=== PATIENT | female | born 1950 | race Caucasian/White ===

== ENCOUNTER 2017-12-19 01:24 | Emergency (ER) | payer MEDICARE ==
[~2017-12-19] VITALS: Ht 167.6 cm; Wt 82.0 kg
[~2017-12-19 01:24] MED LIST: ALBU8.5H8 IH; BUDE0.256 NEB; CLON-528 PO; ESCI20TA PO; FORM20VI IH; LISI1TAB11 PO; MONT10TA21 PO; PROM25TA14 PO; ZOLP10TA5 PO
[2017-12-19 01:31] VITALS: BP 115/57
== END 2017-12-19 02:44 | disposition home or self-care (01) ==
LOC: ER 01:25
DX: M53.3 Sacrococcygeal disorders, not elsewhere classified (principal); I10 Essential (primary) hypertension; J44.9 Chronic obstructive pulmonary disease, unspecified; Z88.5 Allergy status to narcotic agent; Z88.0 Allergy status to penicillin; Z90.710 Acquired absence of both cervix and uterus; Z79.899 Other long term (current) drug therapy; W19.XXXA Unspecified fall, initial encounter; Y93.89 Activity, other specified; Y92.89 Other specified places as the place of occurrence of the external cause; Y99.8 Other external cause status
CPT/HCPCS: 99284

== ENCOUNTER 2018-01-15 13:53 | Inpatient (IN) | payer MEDICARE ==
[~2018-01-15] VITALS: Ht 172.7 cm; Wt 65.0 kg
[2018-01-15] MEDS ORDERED: normal saline 1000ML IV soln IV ONE (14:10)
[2018-01-15 14:30] LABS: BASOPHILS % (AUTO) 0.6 % (0-1); EOSINOPHILS # (AUTO) 0.1 X10'3 (0-0.9); EOSINOPHILS % (AUTO) 1.8 % (0-6); HEMATOCRIT 29.3 % (35.0-45.0); HEMOGLOBIN 9.7 g/dl (12.0-16.0); LYMPHOCYTES # (AUTO) 0.5 X10'3 (1.1-4.8); LYMPHOCYTES % (AUTO) 5.6 % (21-51); MEAN CORPUSCULAR HEMOGLOBIN 28.8 PG (27.0-31.0); MEAN CORPUSCULAR VOLUME 87.2 FL (78-98); MONOCYTES # (AUTO) 0.5 X10'3 (0-0.9); MONOCYTES % (AUTO) 5.6 % (2-12); NEUTROPHILS % (AUTO) 86.4 % (42-75); PLATELET COUNT 176 X10'3 (140-440); RED BLOOD COUNT 3.36 X10'6 (4.20-5.60); RED CELL DISTRIBUTION WIDTH 15.2 % (11.5-14.5); WHITE BLOOD COUNT 8.1 X10'3 (4.5-11.0)
[2018-01-15 14:43] LABS: INR 1.4 INR; PARTIAL THROMBOPLASTIN TIME 38 SECONDS (22-32); PROTHROMBIN TIME 14.4 SECONDS (9.0-12.0)
[2018-01-15 14:49] LABS: ALANINE AMINOTRANSFERASE 20 U/L (12-78); ALBUMIN/GLOBULIN RATIO 0.5 (1.1-1.5); ALKALINE PHOSPHATASE 157 IU/L (46-116); ANION GAP 14 (8-16); ASPARTATE AMINO TRANSFERASE 33 U/L (10-37); BILIRUBIN,TOTAL 0.3 MG/DL (0.1-1.0); BLOOD UREA NITROGEN 68 MG/DL (7-18); BUN/CREATININE RATIO 12.1 (6.6-38.0); CALCIUM 10.2 MG/DL (8.5-10.1); CHLORIDE 104 MMOL/L (99-107); CREATININE 5.62 MG/DL (0.40-0.90); GLUCOSE 102 MG/DL (70-104); MAGNESIUM 2.5 MG/DL (1.5-2.4); POTASSIUM 3.1 MMOL/L (3.5-5.1); SODIUM 140 MMOL/L (135-145); TOTAL CARBON DIOXIDE 21.7 MMOL/L (24-32); TOTAL PROTEIN 5.7 G/DL (6.4-8.2); eGFR 7 ML/MIN
[2018-01-15 14:54] LABS: CLARITY,URINE Cloudy (Clear); COLOR,URINE Yellow (Yellow); GLUCOSE, URINE Negative (Neg); KETONES,URINE Negative (Neg); LEUKOCYTE ESTERASE ,URINE Moderate (Neg); NITRITES, URINE Negative (Neg); OCCULT BLOOD,URINE Moderate (Neg); PH,URINE 5.5 (4.8-8.0); PROTEIN,URINE 300 mg/dl (Neg); UROBILINOGEN,URINE 0.2 E.U/dL (0.2-1.0)
[2018-01-15 14:55] LABS: UA COLLECTION TYPE FOLEY CATH
[2018-01-15 15:03] LABS: WBC,URINE 50-100 /HPF (0-4)
[2018-01-15 15:04] LABS: BACTERIA,URINE 1+ /HPF (Neg); CELLULAR CAST 0-4 /LPF (NEGATIVE); SQUAMOUS EPITHELIAL CELL,UR FEW /LPF (FEW); TRANSITIONAL EPI CELLS,URINE FEW /HPF; WBC CLUMPS,URINE FEW /HPF (NEGATIVE); YEAST MANY /HPF (NEGATIVE)
[2018-01-15] MEDS ORDERED: magnesium hydroxide 30ml (MOM) UD suspension PO PRN (15:20)
[2018-01-15] MEDS ORDERED: magnesium Cl slow-release 64mg tablet PO PRN (15:20)
[2018-01-15] MEDS ORDERED: magnesium/D5W IVPB 50 ML IV PRN (15:20)
[2018-01-15] MEDS ORDERED: mag hydrox/Alum hydrox/simeth 30ml oral suspension PO PRN (15:20)
[2018-01-15] MEDS ORDERED: acetaminophen 325mg tablet PO PRN ×2 (15:20)
[2018-01-15] MEDS ORDERED: magnesium 4gm in 100ml NS 100 ML IV PRN (15:20)
[2018-01-15] MEDS ORDERED: LACT1CAP57 PO (15:27)
[2018-01-15] MEDS ORDERED: CIPR-259 PO (15:28)
[2018-01-15] MEDS ORDERED: FOLI1TAB16 PO (15:30)
[2018-01-15] MEDS ORDERED: CEFE2VIA IV (15:31)
[2018-01-15] MEDS ORDERED: HYDR-565 PO (15:33)
[2018-01-15] MEDS ORDERED: AMLO5TAB4 PO (15:33)
[2018-01-15] MEDS ORDERED: OMEP20CA10 PO (15:34)
[2018-01-15] MEDS ORDERED: SENN-161 PO (15:35)
[2018-01-15] MEDS ORDERED: ASCO500C15 PO (15:36)
[2018-01-15] MEDS: sodium bicarbonate (8.4%) inj. 100 MEQ in sodium chloride 0.45% 1,000 ML IV SCH (16:24)
[2018-01-15] MEDS ORDERED: zolpidem 5mg tablet PO PRN (17:35)
[2018-01-15] MEDS: CEFEPIME 1 GM in NORMAL SALINE 100ml IV.SOLN IV SCH (17:45)
[2018-01-15 19:00] VITALS: BP 111/51
[2018-01-15] MEDS: heparin, porcine 5000 units/ml vial SQ SCH (21:05)
[2018-01-15] MEDS: lactobacillus rhamnosus 10,000 MMU CELLS/CAPSULE PO SCH (21:08)
[2018-01-15] MEDS: citalopram 20mg tablet PO SCH (21:08)
[2018-01-15] MEDS: ascorbic acid 500mg tablet PO SCH (21:08)
[2018-01-15] MEDS: sennosides 8.6mg tablet PO SCH (21:08)
[2018-01-15] MEDS: ciprofloxacin 250mg tablet PO SCH (21:08)
[2018-01-15 23:00] VITALS: BP 118/50
[2018-01-16 03:00] VITALS: BP 123/54
[2018-01-16] MEDS: sodium bicarbonate (8.4%) inj. 100 MEQ in sodium chloride 0.45% 1,000 ML IV SCH (05:33)
[2018-01-16 06:00] VITALS: BP 128/47
[2018-01-16] MEDS: heparin, porcine 5000 units/ml vial SQ SCH ×2 (08:11→20:50)
[2018-01-16] MEDS: pantoprazole 40mg Tablet.DR PO SCH (08:11)
[2018-01-16] MEDS: lactobacillus rhamnosus 10,000 MMU CELLS/CAPSULE PO SCH ×3 (08:12→20:31)
[2018-01-16] MEDS: folic acid 1mg tablet PO SCH (08:12)
[2018-01-16] MEDS: amLODIPine 5mg tablet PO SCH (08:12)
[2018-01-16] MEDS: HYDROcodone/acetaminophen 5mg/325mg tablet PO PRN (08:12)
[2018-01-16] MEDS: ascorbic acid 500mg tablet PO SCH ×2 (08:12→20:31)
[2018-01-16] MEDS ORDERED: magnesium hydroxide 30ml (MOM) UD suspension PO ONE (08:25)
[2018-01-16 10:06] LABS: BASOPHILS % (AUTO) 0.6 % (0-1); EOSINOPHILS # (AUTO) 0.1 X10'3 (0-0.9); EOSINOPHILS % (AUTO) 1.5 % (0-6); HEMATOCRIT 25.8 % (35.0-45.0); HEMOGLOBIN 8.6 g/dl (12.0-16.0); LYMPHOCYTES # (AUTO) 0.5 X10'3 (1.1-4.8); LYMPHOCYTES % (AUTO) 6.3 % (21-51); MEAN CORPUSCULAR HGB CONC 33.4 % (33.0-36.5); MEAN CORPUSCULAR VOLUME 87.1 FL (78-98); MEAN PLATELET VOLUME 9.8 FL (7.4-10.4); MONOCYTES # (AUTO) 0.4 X10'3 (0-0.9); MONOCYTES % (AUTO) 5.6 % (2-12); NEUTROPHILS # (AUTO) 6.3 X10'3 (1.8-7.7); PLATELET COUNT 139 X10'3 (140-440); RED BLOOD COUNT 2.97 X10'6 (4.20-5.60); RED CELL DISTRIBUTION WIDTH 15.1 % (11.5-14.5); WHITE BLOOD COUNT 7.3 X10'3 (4.5-11.0)
[2018-01-16 10:16] LABS: TOTAL PROTEIN,URINE RANDOM 121.4 MG/DL
[2018-01-16 10:20] LABS: ALANINE AMINOTRANSFERASE 16 U/L (12-78); ALBUMIN 1.6 G/DL (3.4-5.0); ALBUMIN/GLOBULIN RATIO 0.5 (1.1-1.5); ALKALINE PHOSPHATASE 123 IU/L (46-116); ANION GAP 13 (8-16); ASPARTATE AMINO TRANSFERASE 23 U/L (10-37); BILIRUBIN,TOTAL 0.3 MG/DL (0.1-1.0); BLOOD UREA NITROGEN 57 MG/DL (7-18); CALCIUM 8.6 MG/DL (8.5-10.1); CHLORIDE 105 MMOL/L (99-107); CREATININE 4.74 MG/DL (0.40-0.90); GLUCOSE 82 MG/DL (70-104); PHOSPHORUS 2.4 MG/DL (2.3-4.5); SODIUM 147 MMOL/L (135-145); TOTAL PROTEIN 4.7 G/DL (6.4-8.2); eGFR 9 ML/MIN
[2018-01-16 10:27] LABS: POTASSIUM 2.4 MMOL/L (3.5-5.1)
[2018-01-16 10:37] LABS: UA EOSINOPHILS NO EOS /HPF
[2018-01-16] MEDS ORDERED: potassium Cl 20 mEq SR tablet PO PRN (10:40)
[2018-01-16] MEDS ORDERED: potassium Cl 40MEQ/NS 500ml 500 ML IV PRN ×2 (10:40)
[2018-01-16 11:00] VITALS: BP 127/65
[2018-01-16] MEDS: potassium Cl 20 mEq SR tablet PO PRN (12:48)
[2018-01-16] MEDS: ciprofloxacin 250mg tablet PO SCH (13:20)
[2018-01-16] MEDS: Potassium Cl inj 20 MEQ in dextrose 5%-water 990 ML IV SCH (14:42)
[2018-01-16 15:00] VITALS: BP 138/58
[2018-01-16] MEDS: CEFEPIME 1 GM in NORMAL SALINE 100ml IV.SOLN IV SCH (17:19)
[2018-01-16 19:00] VITALS: BP 138/45
[2018-01-16] MEDS: citalopram 20mg tablet PO SCH (20:31)
[2018-01-16] MEDS: docusate sod 100mg capsule PO SCH (20:31)
[2018-01-16] MEDS: sennosides 8.6mg tablet PO SCH (20:31)
[2018-01-16] MEDS: ondansetron/PF 4mg/2ml inj IV PRN (20:38)
[2018-01-16] MEDS ORDERED: potassium Cl 40MEQ/NS 500ml 1,000 ML IV ONE (22:05)
[2018-01-16 23:00] VITALS: BP 134/55
[2018-01-17 03:00] VITALS: BP 124/58
[2018-01-17 03:45] LABS: BASOPHILS % (AUTO) 0.5 % (0-1); EOSINOPHILS # (AUTO) 0.1 X10'3 (0-0.9); EOSINOPHILS % (AUTO) 1.3 % (0-6); HEMATOCRIT 27.7 % (35.0-45.0); HEMOGLOBIN 9.2 g/dl (12.0-16.0); LYMPHOCYTES # (AUTO) 0.5 X10'3 (1.1-4.8); LYMPHOCYTES % (AUTO) 6.9 % (21-51); MEAN CORPUSCULAR HEMOGLOBIN 28.7 PG (27.0-31.0); MEAN CORPUSCULAR HGB CONC 33.3 % (33.0-36.5); MEAN CORPUSCULAR VOLUME 86.1 FL (78-98); MEAN PLATELET VOLUME 9.5 FL (7.4-10.4); MONOCYTES # (AUTO) 0.5 X10'3 (0-0.9); MONOCYTES % (AUTO) 7.9 % (2-12); NEUTROPHILS # (AUTO) 5.5 X10'3 (1.8-7.7); NEUTROPHILS % (AUTO) 83.4 % (42-75); PLATELET COUNT 150 X10'3 (140-440); RED BLOOD COUNT 3.22 X10'6 (4.20-5.60); RED CELL DISTRIBUTION WIDTH 15.2 % (11.5-14.5); WHITE BLOOD COUNT 6.6 X10'3 (4.5-11.0)
[2018-01-17 04:11] LABS: ALANINE AMINOTRANSFERASE 20 U/L (12-78); ALBUMIN 1.8 G/DL (3.4-5.0); ALBUMIN/GLOBULIN RATIO 0.5 (1.1-1.5); ALKALINE PHOSPHATASE 136 IU/L (46-116); ANION GAP 13 (8-16); ASPARTATE AMINO TRANSFERASE 26 U/L (10-37); BILIRUBIN,TOTAL 0.2 MG/DL (0.1-1.0); BLOOD UREA NITROGEN 59 MG/DL (7-18); BUN/CREATININE RATIO 12.6 (6.6-38.0); CALCIUM 9.6 MG/DL (8.5-10.1); CHLORIDE 108 MMOL/L (99-107); CREATININE 4.69 MG/DL (0.40-0.90); GLUCOSE 110 MG/DL (70-104); MAGNESIUM 2.1 MG/DL (1.5-2.4); PHOSPHORUS 2.1 MG/DL (2.3-4.5); SODIUM 145 MMOL/L (135-145); TOTAL CARBON DIOXIDE 24.2 MMOL/L (24-32); TOTAL PROTEIN 5.2 G/DL (6.4-8.2); eGFR 9 ML/MIN
[2018-01-17 06:00] VITALS: BP 135/70
[2018-01-17] MEDS: Potassium Cl inj 20 MEQ in dextrose 5%-water 990 ML IV SCH ×3 (06:35→16:14)
[2018-01-17] MEDS: ciprofloxacin 250mg tablet PO SCH (07:00)
[2018-01-17] MEDS: ascorbic acid 500mg tablet PO SCH ×2 (08:00→20:00)
[2018-01-17] MEDS: folic acid 1mg tablet PO SCH (08:00)
[2018-01-17] MEDS: pantoprazole 40mg Tablet.DR PO SCH (08:00)
[2018-01-17] MEDS: lactobacillus rhamnosus 10,000 MMU CELLS/CAPSULE PO SCH ×3 (08:00→21:00)
[2018-01-17] MEDS: docusate sod 100mg capsule PO SCH ×2 (08:00→20:00)
[2018-01-17] MEDS: ondansetron/PF 4mg/2ml inj IV PRN (08:49)
[2018-01-17] MEDS: heparin, porcine 5000 units/ml vial SQ SCH ×2 (08:49→20:00)
[2018-01-17] MEDS: amLODIPine 5mg tablet PO SCH (08:49)
[2018-01-17] MEDS ORDERED: bisacodyl 10mg suppository rectal RC STA (10:02)
[2018-01-17 11:00] VITALS: BP 151/75
[2018-01-17] MEDS: HYDROcodone/acetaminophen 5mg/325mg tablet PO PRN (12:16)
[2018-01-17 15:00] VITALS: BP 140/57
[2018-01-17] MEDS: folic acid/vitamin B complex w/vitamin C 0.8mg tablet PO SCH (16:14)
[2018-01-17] MEDS: clotrimazole 10mg troche MM SCH ×2 (17:24→21:53)
[2018-01-17 19:00] VITALS: BP 134/67
[2018-01-17] MEDS ORDERED: LORazepam 2 mg/ml vial IV ONE (19:55)
[2018-01-17] MEDS: sennosides 8.6mg tablet PO SCH (21:00)
[2018-01-17] MEDS: citalopram 20mg tablet PO SCH (21:00)
[2018-01-17 23:00] VITALS: BP 141/62
[2018-01-18] MEDS: ciprofloxacin 250mg tablet PO SCH ×2 (01:05→19:34)
[2018-01-18] MEDS ORDERED: potassium CL 20mEq in D5-1/2NS 1,000 ML IV SCH (02:00)
[2018-01-18] MEDS ORDERED: potassium cl 20mEq in 1/2 NS 1,000 ML IV ONE (02:08)
[2018-01-18] MEDS: potassium cl 20mEq in 1/2 NS 1,000 ML IV SCH ×3 (02:17→21:00)
[2018-01-18] MEDS: Potassium Cl inj 20 MEQ in dextrose 5%-water 990 ML IV SCH (02:35)
[2018-01-18 03:00] VITALS: BP 122/62
[2018-01-18 05:13] LABS: BASOPHILS % (AUTO) 0.4 % (0-1); EOSINOPHILS # (AUTO) 0.2 X10'3 (0-0.9); EOSINOPHILS % (AUTO) 2.6 % (0-6); HEMATOCRIT 27.9 % (35.0-45.0); HEMOGLOBIN 9.6 g/dl (12.0-16.0); LYMPHOCYTES # (AUTO) 0.7 X10'3 (1.1-4.8); LYMPHOCYTES % (AUTO) 9.9 % (21-51); MEAN CORPUSCULAR HEMOGLOBIN 29.1 PG (27.0-31.0); MEAN CORPUSCULAR HGB CONC 34.3 % (33.0-36.5); MEAN CORPUSCULAR VOLUME 84.9 FL (78-98); MEAN PLATELET VOLUME 9.5 FL (7.4-10.4); MONOCYTES # (AUTO) 0.6 X10'3 (0-0.9); MONOCYTES % (AUTO) 8.8 % (2-12); NEUTROPHILS # (AUTO) 5.4 X10'3 (1.8-7.7); NEUTROPHILS % (AUTO) 78.3 % (42-75); PLATELET COUNT 148 X10'3 (140-440); RED BLOOD COUNT 3.29 X10'6 (4.20-5.60); WHITE BLOOD COUNT 6.9 X10'3 (4.5-11.0)
[2018-01-18 05:40] LABS: ALANINE AMINOTRANSFERASE 18 U/L (12-78); ALBUMIN 1.9 G/DL (3.4-5.0); ALBUMIN/GLOBULIN RATIO 0.6 (1.1-1.5); ALKALINE PHOSPHATASE 138 IU/L (46-116); ANION GAP 7 (8-16); ASPARTATE AMINO TRANSFERASE 25 U/L (10-37); BILIRUBIN,TOTAL 0.3 MG/DL (0.1-1.0); BLOOD UREA NITROGEN 52 MG/DL (7-18); BUN/CREATININE RATIO 13.2 (6.6-38.0); CALCIUM 9.7 MG/DL (8.5-10.1); CHLORIDE 103 MMOL/L (99-107); CREATININE 3.95 MG/DL (0.40-0.90); GLUCOSE 102 MG/DL (70-104); MAGNESIUM 1.7 MG/DL (1.5-2.4); PHOSPHORUS 1.8 MG/DL (2.3-4.5); SODIUM 138 MMOL/L (135-145); TOTAL CARBON DIOXIDE 27.9 MMOL/L (24-32); TOTAL PROTEIN 5.3 G/DL (6.4-8.2); eGFR 11 ML/MIN
[2018-01-18 05:44] LABS: POTASSIUM 2.7 MMOL/L (3.5-5.1)
[2018-01-18 06:00] VITALS: BP 131/59
[2018-01-18] MEDS: clotrimazole 10mg troche MM SCH ×5 (06:00→21:42)
[2018-01-18] MEDS: lactobacillus rhamnosus 10,000 MMU CELLS/CAPSULE PO SCH ×3 (07:28→21:42)
[2018-01-18] MEDS: docusate sod 100mg capsule PO SCH ×2 (07:28→19:34)
[2018-01-18] MEDS: folic acid/vitamin B complex w/vitamin C 0.8mg tablet PO SCH (07:29)
[2018-01-18] MEDS: potassium Cl 20 mEq SR tablet PO PRN ×3 (07:29→15:31)
[2018-01-18] MEDS: folic acid 1mg tablet PO SCH (07:29)
[2018-01-18] MEDS: amLODIPine 5mg tablet PO SCH (07:29)
[2018-01-18] MEDS: ascorbic acid 500mg tablet PO SCH ×2 (07:29→19:34)
[2018-01-18] MEDS: pantoprazole 40mg Tablet.DR PO SCH (07:29)
[2018-01-18] MEDS: heparin, porcine 5000 units/ml vial SQ SCH ×2 (07:30→19:35)
[2018-01-18 09:42] LABS: CLARITY,URINE SLIGHTLY CLOUDY (Clear); COLOR,URINE YELLOW (Yellow); GLUCOSE, URINE NEGATIVE (Neg); KETONES,URINE NEGATIVE (Neg); LEUKOCYTE ESTERASE ,URINE SMALL (Neg); NITRITES, URINE NEGATIVE (Neg); OCCULT BLOOD,URINE SMALL (Neg); PH,URINE 5.5 (4.8-8.0); PROTEIN,URINE 30 mg/dl (Neg); UROBILINOGEN,URINE 0.2 E.U/dL (0.2-1.0)
[2018-01-18 09:46] LABS: UA COLLECTION TYPE FOLEY CATH
[2018-01-18 09:55] LABS: BACTERIA,URINE NONE SEEN /HPF (Neg); RBC,URINE 0-2 /HPF (0-2); SQUAMOUS EPITHELIAL CELL,UR FEW /LPF (FEW)
[2018-01-18 09:56] LABS: MUCUS STRANDS FEW /LPF (Neg); YEAST MODERATE /HPF (NEGATIVE)
[2018-01-18 09:57] LABS: AMORPHOUS URATES 1+; COARSE GRANULAR CAST 0-3 /LPF (NEGATIVE)
[2018-01-18 11:00] VITALS: BP 135/68
[2018-01-18] MEDS: HYDROcodone/acetaminophen 5mg/325mg tablet PO PRN (13:25)
[2018-01-18 15:00] VITALS: BP 130/58
[2018-01-18] MEDS: Neutra Phos packet PO PRN (15:28)
[2018-01-18 19:00] VITALS: BP 141/67
[2018-01-18] MEDS: sennosides 8.6mg tablet PO SCH (21:41)
[2018-01-18] MEDS: citalopram 20mg tablet PO SCH (21:42)
[2018-01-18] MEDS: temazepam 15mg capsule PO PRN (21:42)
[2018-01-18 23:00] VITALS: BP 133/65
[2018-01-19] MEDS: potassium cl 20mEq in 1/2 NS 1,000 ML IV SCH ×4 (02:00→23:05)
[2018-01-19 02:14] LABS: ALANINE AMINOTRANSFERASE 20 U/L (12-78); ALBUMIN/GLOBULIN RATIO 0.6 (1.1-1.5); ALKALINE PHOSPHATASE 137 IU/L (46-116); ANION GAP 9 (8-16); ASPARTATE AMINO TRANSFERASE 25 U/L (10-37); BILIRUBIN,TOTAL 0.3 MG/DL (0.1-1.0); BLOOD UREA NITROGEN 44 MG/DL (7-18); BUN/CREATININE RATIO 13.9 (6.6-38.0); CALCIUM 8.9 MG/DL (8.5-10.1); CHLORIDE 106 MMOL/L (99-107); CREATININE 3.17 MG/DL (0.40-0.90); GLUCOSE 95 MG/DL (70-104); MAGNESIUM 1.5 MG/DL (1.5-2.4); POTASSIUM 3.8 MMOL/L (3.5-5.1); SODIUM 141 MMOL/L (135-145); TOTAL CARBON DIOXIDE 26.4 MMOL/L (24-32); TOTAL PROTEIN 5.3 G/DL (6.4-8.2); eGFR 15 ML/MIN
[2018-01-19 02:21] LABS: BASOPHILS % (AUTO) 0.7 % (0-1); EOSINOPHILS # (AUTO) 0.1 X10'3 (0-0.9); EOSINOPHILS % (AUTO) 2.3 % (0-6); HEMOGLOBIN 9.3 g/dl (12.0-16.0); LYMPHOCYTES # (AUTO) 0.8 X10'3 (1.1-4.8); LYMPHOCYTES % (AUTO) 14.9 % (21-51); MEAN CORPUSCULAR HEMOGLOBIN 28.5 PG (27.0-31.0); MEAN CORPUSCULAR HGB CONC 33.1 % (33.0-36.5); MEAN CORPUSCULAR VOLUME 86.1 FL (78-98); MEAN PLATELET VOLUME 9.9 FL (7.4-10.4); MONOCYTES # (AUTO) 0.6 X10'3 (0-0.9); MONOCYTES % (AUTO) 10.5 % (2-12); NEUTROPHILS % (AUTO) 71.6 % (42-75); PLATELET COUNT 132 X10'3 (140-440); RED BLOOD COUNT 3.25 X10'6 (4.20-5.60); RED CELL DISTRIBUTION WIDTH 15.2 % (11.5-14.5); WHITE BLOOD COUNT 5.6 X10'3 (4.5-11.0)
[2018-01-19 03:00] VITALS: BP 133/64
[2018-01-19 06:44] VITALS: BP 137/67
[2018-01-19] MEDS: amLODIPine 5mg tablet PO SCH (08:06)
[2018-01-19] MEDS: folic acid/vitamin B complex w/vitamin C 0.8mg tablet PO SCH (08:06)
[2018-01-19] MEDS: ascorbic acid 500mg tablet PO SCH ×2 (08:06→19:37)
[2018-01-19] MEDS: folic acid 1mg tablet PO SCH (08:06)
[2018-01-19] MEDS: heparin, porcine 5000 units/ml vial SQ SCH ×2 (08:06→19:37)
[2018-01-19] MEDS: docusate sod 100mg capsule PO SCH ×2 (08:06→19:37)
[2018-01-19] MEDS: lactobacillus rhamnosus 10,000 MMU CELLS/CAPSULE PO SCH ×3 (08:06→22:05)
[2018-01-19] MEDS: pantoprazole 40mg Tablet.DR PO SCH (08:06)
[2018-01-19] MEDS: clotrimazole 10mg troche MM SCH ×4 (08:07→22:06)
[2018-01-19 11:00] VITALS: BP 140/64
[2018-01-19] MEDS: ciprofloxacin 250mg tablet PO SCH (12:51)
[2018-01-19] MEDS: HYDROcodone/acetaminophen 10/325mg tab PO PRN (12:55)
[2018-01-19 15:00] VITALS: BP 122/71
[2018-01-19] MEDS: albuterol 2.5 MG/3 ML nebule NEB PRN (17:13)
[2018-01-19 19:00] VITALS: BP 138/75
[2018-01-19] MEDS: citalopram 20mg tablet PO SCH (22:05)
[2018-01-19] MEDS: sennosides 8.6mg tablet PO SCH (22:06)
[2018-01-19 23:00] VITALS: BP 141/65
[2018-01-19] MEDS: temazepam 15mg capsule PO PRN (23:05)
[2018-01-20 03:00] VITALS: BP 134/66
[2018-01-20 06:01] LABS: BASOPHILS % (AUTO) 0.6 % (0-1); EOSINOPHILS # (AUTO) 0.1 X10'3 (0-0.9); EOSINOPHILS % (AUTO) 1.9 % (0-6); HEMATOCRIT 27.1 % (35.0-45.0); HEMOGLOBIN 9.2 g/dl (12.0-16.0); LYMPHOCYTES # (AUTO) 0.7 X10'3 (1.1-4.8); LYMPHOCYTES % (AUTO) 12.4 % (21-51); MEAN CORPUSCULAR HEMOGLOBIN 28.7 PG (27.0-31.0); MEAN CORPUSCULAR HGB CONC 33.9 % (33.0-36.5); MEAN CORPUSCULAR VOLUME 84.7 FL (78-98); MEAN PLATELET VOLUME 9.8 FL (7.4-10.4); MONOCYTES # (AUTO) 0.5 X10'3 (0-0.9); MONOCYTES % (AUTO) 8.3 % (2-12); NEUTROPHILS # (AUTO) 4.5 X10'3 (1.8-7.7); NEUTROPHILS % (AUTO) 76.8 % (42-75); PLATELET COUNT 141 X10'3 (140-440); RED CELL DISTRIBUTION WIDTH 15.4 % (11.5-14.5); WHITE BLOOD COUNT 5.9 X10'3 (4.5-11.0)
[2018-01-20 06:28] LABS: ALANINE AMINOTRANSFERASE 25 U/L (12-78); ALBUMIN 2.1 G/DL (3.4-5.0); ALBUMIN/GLOBULIN RATIO 0.6 (1.1-1.5); ALKALINE PHOSPHATASE 138 IU/L (46-116); ANION GAP 10 (8-16); ASPARTATE AMINO TRANSFERASE 28 U/L (10-37); BILIRUBIN,TOTAL 0.4 MG/DL (0.1-1.0); BLOOD UREA NITROGEN 33 MG/DL (7-18); BUN/CREATININE RATIO 13.3 (6.6-38.0); CALCIUM 8.9 MG/DL (8.5-10.1); CHLORIDE 105 MMOL/L (99-107); CREATININE 2.49 MG/DL (0.40-0.90); GLUCOSE 99 MG/DL (70-104); MAGNESIUM 1.1 MG/DL (1.5-2.4); PHOSPHORUS 1.9 MG/DL (2.3-4.5); POTASSIUM 3.4 MMOL/L (3.5-5.1); SODIUM 140 MMOL/L (135-145); TOTAL PROTEIN 5.4 G/DL (6.4-8.2); eGFR 19 ML/MIN
[2018-01-20 06:44] VITALS: BP 153/76
[2018-01-20] MEDS: HYDROcodone/acetaminophen 10/325mg tab PO PRN ×3 (07:32→16:57)
[2018-01-20] MEDS: docusate sod 100mg capsule PO SCH (07:33)
[2018-01-20] MEDS: folic acid/vitamin B complex w/vitamin C 0.8mg tablet PO SCH (07:33)
[2018-01-20] MEDS: folic acid 1mg tablet PO SCH (07:33)
[2018-01-20] MEDS: ascorbic acid 500mg tablet PO SCH (07:33)
[2018-01-20] MEDS: amLODIPine 5mg tablet PO SCH (07:33)
[2018-01-20] MEDS: lactobacillus rhamnosus 10,000 MMU CELLS/CAPSULE PO SCH ×2 (07:33→12:11)
[2018-01-20] MEDS: heparin, porcine 5000 units/ml vial SQ SCH (07:33)
[2018-01-20] MEDS: pantoprazole 40mg Tablet.DR PO SCH (07:33)
[2018-01-20] MEDS: Neutra Phos packet PO PRN ×2 (07:33→12:11)
[2018-01-20] MEDS: ciprofloxacin 250mg tablet PO SCH (07:33)
[2018-01-20] MEDS: clotrimazole 10mg troche MM SCH ×3 (07:34→14:59)
[2018-01-20] MEDS: potassium cl 20mEq in 1/2 NS 1,000 ML IV SCH ×2 (09:10→16:59)
[2018-01-20] MEDS ORDERED: magnesium 4gm in 100ml NS 100 ML IV PRN (09:50)
[2018-01-20] MEDS ORDERED: magnesium/D5W IVPB 100 ML IV PRN (09:50)
[2018-01-20] MEDS ORDERED: magnesium Cl slow-release 64mg tablet PO PRN (09:50)
[2018-01-20 11:00] VITALS: BP 123/76
[2018-01-20] MEDS: albuterol 2.5 MG/3 ML nebule NEB PRN (13:39)
[2018-01-20 15:00] VITALS: BP 116/73
[2018-01-21] MEDS ORDERED: ciprofloxacin 250mg tablet PO SCH (01:00)
== END 2018-01-20 18:13 | DRG 682 ==
LOC: ER 13:54 → ED HOLD 15:17 → EDBEDREQ 18:19 → PCU 3S 18:45
PROVIDERS: ADMIT Family Medicine; ATTEND Internal Medicine
PROC: 05H533Z Insertion of Infusion Device into Right Subclavian Vein, Percutaneous Approach (ICD-10-PCS; principal; 2018-01-15)
DX: N17.0 Acute kidney failure with tubular necrosis (principal); J96.01 Acute respiratory failure with hypoxia; E43 Unspecified severe protein-calorie malnutrition; G93.41 Metabolic encephalopathy; E87.0 Hyperosmolality and hypernatremia; E87.6 Hypokalemia; N18.9 Chronic kidney disease, unspecified; D64.9 Anemia, unspecified; I12.9 Hypertensive chronic kidney disease with stage 1 through stage 4 chronic kidney disease, or unspecified chronic kidney disease; F41.9 Anxiety disorder, unspecified; M10.9 Gout, unspecified; J44.9 Chronic obstructive pulmonary disease, unspecified; Z90.710 Acquired absence of both cervix and uterus; Z88.0 Allergy status to penicillin; Z88.6 Allergy status to analgesic agent; Z79.899 Other long term (current) drug therapy; Z87.891 Personal history of nicotine dependence; Z68.29 Body mass index [BMI] 29.0-29.9, adult
CPT/HCPCS: 36415; 70450; 71045; 74176; 76775; 80053; 81001; 82140; 82570; 83605; 83735; 83935; 84100; 84132; 84133; 84145; 84156; 84300; 85025; 85610; 85730; 86140; 87040; 87070; 87088; 87207; 92616; 93005; 94640; 94760; 96360; 96361; 97110; 97116; 97161; 97530; 99285; A6209; A6212; A6253; J0692; J1644; J2060; J2405; J3475; J3480; J7030; J7070

== ENCOUNTER 2018-05-05 12:07 | Outpatient (CLI) | payer MEDICARE ==
[~2018-05-05 12:07] MED LIST changes: +AMLO5TAB4 PO; +ASCO500C15 PO; +CEFE2VIA IV; +CIPR-259 PO; +FOLI1TAB16 PO; -FORM20VI IH; +HYDR-4353 PO; +LACT1CAP57 PO; -LISI1TAB11 PO; -MONT10TA21 PO; +OMEP20CA10 PO; +SENN-161 PO
[2018-05-05 14:12] LABS: MEAN CORPUSCULAR HEMOGLOBIN 27.6 PG (27.0-31.0); MEAN CORPUSCULAR HGB CONC 33.6 % (33.0-36.5); PRE OP HEMATOCRIT 32.1 % (35.0-45.0); RED BLOOD COUNT 3.92 X10'6 (4.20-5.60)
[2018-05-05 14:13] LABS: BASOPHILS % (AUTO) 0.4 % (0-1); EOSINOPHILS # (AUTO) 0.4 X10'3 (0-0.9); EOSINOPHILS % (AUTO) 5.9 % (0-6); LYMPHOCYTES # (AUTO) 1.3 X10'3 (1.1-4.8); LYMPHOCYTES % (AUTO) 19.9 % (21-51); MEAN PLATELET VOLUME 8.4 FL (7.4-10.4); MONOCYTES # (AUTO) 0.2 X10'3 (0-0.9); MONOCYTES % (AUTO) 3.6 % (2-12); NEUTROPHILS # (AUTO) 4.5 X10'3 (1.8-7.7); NEUTROPHILS % (AUTO) 70.2 % (42-75); PRE OP PLATELET COUNT 233 X10'3 (140-440); PRE OP PROTIME 10.3 SECONDS (9.0-12.0); RED CELL DISTRIBUTION WIDTH 15.6 % (11.5-14.5)
[2018-05-05 14:15] LABS: PRE OP HEMOGLOBIN 10.8 g/dL (12.0-16.0)
[2018-05-05 14:17] LABS: CLARITY,URINE CLEAR (Clear); COLOR,URINE YELLOW (Yellow); GLUCOSE, URINE NEGATIVE (Neg); KETONES,URINE NEGATIVE (Neg); LEUKOCYTE ESTERASE ,URINE SMALL (Neg); NITRITES, URINE NEGATIVE (Neg); OCCULT BLOOD,URINE TRACE-INTACT (Neg); PH,URINE 5.5 (4.8-8.0); PROTEIN,URINE NEGATIVE (Neg); UA COLLECTION TYPE CLN CATCH MIDSTREAM; UROBILINOGEN,URINE 0.2 E.U/dL (0.2-1.0)
[2018-05-05 14:18] LABS: ALBUMIN 3.4 G/DL (3.4-5.0); ALKALINE PHOSPHATASE 156 IU/L (46-116); BLOOD UREA NITROGEN 21 MG/DL (7-18); BUN/CREATININE RATIO 17.6 (6.6-38.0); CALCIUM 9.3 MG/DL (8.5-10.1); CHLORIDE 103 MMOL/L (99-107); CREATININE 1.19 MG/DL (0.40-0.90); PRE OP ALT 17 U/L (30-65); PRE OP ANION GAP 9 (8-16); PRE OP AST 14 U/L (10-37); PRE OP BILIRUB, TOTAL 0.3 MG/DL (0.0-1.0); PRE OP GLUCOSE 93 MG/DL (70-104); PRE OP POTASSIUM 4.1 MMOL/L (3.4-5.1); PRE OP SODIUM 143 MMOL/L (135-145); TOTAL CARBON DIOXIDE 31.2 MMOL/L (24-32); TOTAL PROTEIN 6.7 G/DL (6.4-8.2); eGFR 45 ML/MIN
[2018-05-05 14:25] LABS: RBC,URINE NONE SEEN /HPF (0-2)
[2018-05-05 14:26] LABS: BACTERIA,URINE FEW /HPF (Neg); MUCUS STRANDS FEW /LPF (Neg); SQUAMOUS EPITHELIAL CELL,UR MANY /LPF (FEW)
[2018-05-05] MEDS ORDERED: ASPI-845 PO (15:34)
[2018-05-05] MEDS ORDERED: MELA3TAB PO (15:34)
[2018-05-05] MEDS ORDERED: DOCU-28 PO (15:34)
[2018-05-05] MEDS ORDERED: HYDR-3972 PO (15:34)
[2018-05-05] MEDS ORDERED: ALLO100T PO (15:34)
[2018-05-05] MEDS ORDERED: LACT1CAP65 PO (15:34)
== END 2018-05-05 23:59 | disposition home or self-care (01) ==
LOC: PRE-OP 12:07 → EDSTATUS 05-12 14:15
PROVIDERS: ATTEND Orthopaedic Surgery
DX: Z01.812 Encounter for preprocedural laboratory examination (principal); T84.51XS Infection and inflammatory reaction due to internal right hip prosthesis, sequela; I10 Essential (primary) hypertension; J44.9 Chronic obstructive pulmonary disease, unspecified; Z87.891 Personal history of nicotine dependence; Z89.621 Acquired absence of right hip joint
CPT/HCPCS: 36415; 80053; 81001; 85025; 85610; 85730; 86885; 86900; 86901; 87070; 93005

== ENCOUNTER 2018-05-30 09:45 | Inpatient (IN) | payer MEDICARE ==
[~2018-05-30] VITALS: Ht 170.2 cm; Wt 65.8 kg
[2018-05-30] VITALS (19 sets, daily range): BP systolic 89–151; BP diastolic 45–89
[~2018-05-30 09:45] MED LIST changes: -ALBU8.5H8 IH; +ALLO100T PO; -ASCO500C15 PO; +ASPI-845 PO; -BUDE0.256 NEB; -CEFE2VIA IV; -CIPR-259 PO; +DOCU-28 PO; -FOLI1TAB16 PO; +HYDR-3972 PO; -HYDR-4353 PO; -LACT1CAP57 PO; +LACT1CAP65 PO; +MELA10TA2 PO; +MUPI22OI30 NAS; -OMEP20CA10 PO; -PROM25TA14 PO; -SENN-161 PO; -ZOLP10TA5 PO; +acetaminophen 325mg tablet PO ONE; +celeCOXIB 100mg capsule PO ONE; +famotidine 20mg tablet PO ONE; +gabapentin 300mg capsule PO ONE; +metoclopramide 5 mg/ml inj IV ONE; +oxyCODONE SR 10mg (sust. release) tab -2 tabs (20mg) PO ONE; +ringers solution, lacted 1,000 ML IV SCH; +tranexamic acid inj. 1,000 MG in normal saline 100ml IV soln 90 ML IV ONE
[2018-05-30 11:19] LABS: BASOPHILS % (AUTO) 0.4 % (0-1); EOSINOPHILS # (AUTO) 0.3 X10'3 (0-0.9); EOSINOPHILS % (AUTO) 5.2 % (0-6); LYMPHOCYTES % (AUTO) 14.9 % (21-51); MEAN CORPUSCULAR HEMOGLOBIN 27.1 PG (27.0-31.0); MEAN CORPUSCULAR HGB CONC 32.9 % (33.0-36.5); MEAN CORPUSCULAR VOLUME 82.4 FL (78-98); MONOCYTES # (AUTO) 0.3 X10'3 (0-0.9); MONOCYTES % (AUTO) 4.1 % (2-12); NEUTROPHILS # (AUTO) 4.9 X10'3 (1.8-7.7); NEUTROPHILS % (AUTO) 75.4 % (42-75); PRE OP HEMATOCRIT 33.4 % (35.0-45.0); PRE OP PLATELET COUNT 231 X10'3 (140-440); RED BLOOD COUNT 4.05 X10'6 (4.20-5.60); RED CELL DISTRIBUTION WIDTH 16.8 % (11.5-14.5)
[2018-05-30] MEDS ORDERED: tetracaine 1% (10mg/ml) pres. free inj. ONE (12:49)
[2018-05-30] MEDS ORDERED: docusate sod 100mg capsule PO PRN (12:50)
[2018-05-30] MEDS ORDERED: clonazePAM 0.5mg tablet PO PRN (12:50)
[2018-05-30] MEDS ORDERED: allopurinol 100mg tablet PO PRN (12:50)
[2018-05-30] MEDS ORDERED: MIDAZolam 1mg/ml 10ml vial ONE (12:51)
[2018-05-30] MEDS ORDERED: fentaNYL/PF 50MCG/1 ML 2ML syringe ONE (12:52)
[2018-05-30] MEDS ORDERED: morphine /PF 1mg/ml 10ml inj. ONE (12:52)
[2018-05-30] MEDS ORDERED: BUPIVAcaine/dex-water/PF 7.5 mg/ml 2ml ampul ONE (12:52)
[2018-05-30] MEDS ORDERED: diphenhydrAMINE 25mg capsule PO PRN ×2 (12:55)
[2018-05-30] MEDS ORDERED: acetaminophen 325mg tablet PO PRN (12:55)
[2018-05-30] MEDS ORDERED: bisacodyl 10mg suppository rectal RC PRN (12:55)
[2018-05-30] MEDS ORDERED: ondansetron/PF 4mg/2ml inj IV PRN ×3 (12:55→13:40)
[2018-05-30] MEDS ORDERED: magnesium hydroxide 30ml (MOM) UD suspension PO PRN (12:55)
[2018-05-30] MEDS ORDERED: HYDROmorphone 1 mg/ml syringe IV PRN ×2 (12:55)
[2018-05-30] MEDS: gabapentin 300mg capsule PO SCH ×2 (13:00→20:06)
[2018-05-30] MEDS ORDERED: vancomycin 1,000mg inj ONE ×4 (13:06→14:09)
[2018-05-30] MEDS ORDERED: ceFAZolin 1000mg inj ONE ×2 (13:07)
[2018-05-30] MEDS ORDERED: albumin (Human) 5% 250ml 250 ML IV ONE (13:10)
[2018-05-30] MEDS ORDERED: tranexamic acid inj. 1,000 MG in normal saline 100ml IV soln 100 ML IV ONE (13:20)
[2018-05-30] MEDS ORDERED: phenylephrine 10mg/ml inj. ONE (13:28)
[2018-05-30] MEDS ORDERED: ringers solution, lacted 1,000 ML IV SCH (13:40)
[2018-05-30] MEDS ORDERED: morphine 4 MG/ML inj SYRINge IV PRN ×2 (13:40)
[2018-05-30] MEDS ORDERED: diphenhydrAMINE 50 mg/ml inj IV PRN (13:40)
[2018-05-30] MEDS ORDERED: fentaNYL/PF 50MCG/1 ML 2ML syringe IV PRN ×2 (13:40)
[2018-05-30] MEDS ORDERED: enalaprilat dihydrate 2.5mg/2ml vial IV PRN (13:40)
[2018-05-30] MEDS ORDERED: labetalol 20mg/4ml (5mg/ml) syringe IV PRN (13:40)
[2018-05-30] MEDS: potassium cl 20mEq in 1/2 NS 1,000 ML IV SCH ×2 (17:10→20:51)
[2018-05-30] MEDS ORDERED: mupirocin 2% nasal ointment 1gm UD NS SCH (20:00)
[2018-05-30] MEDS: ascorbic acid 500mg tablet PO SCH (20:05)
[2018-05-30] MEDS: citalopram 20mg tablet PO SCH (20:06)
[2018-05-30] MEDS: oxyCODONE/APAP 10/325mg tablet PO PRN (20:06)
[2018-05-30] MEDS: sennosides 8.6mg tablet PO SCH (20:06)
[2018-05-31 02:00] VITALS: BP 110/44
[2018-05-31] MEDS: oxyCODONE/APAP 5-325mg tablet PO PRN (05:28)
[2018-05-31 06:00] VITALS: BP 111/45
[2018-05-31 06:04] LABS: BASOPHILS % (AUTO) 0.3 % (0-1); EOSINOPHILS # (AUTO) 0.2 X10'3 (0-0.9); EOSINOPHILS % (AUTO) 2.9 % (0-6); HEMATOCRIT 24.5 % (35.0-45.0); HEMOGLOBIN 8.1 g/dl (12.0-16.0); LYMPHOCYTES # (AUTO) 0.9 X10'3 (1.1-4.8); LYMPHOCYTES % (AUTO) 13.9 % (21-51); MEAN CORPUSCULAR HEMOGLOBIN 27.5 PG (27.0-31.0); MEAN CORPUSCULAR HGB CONC 33.1 % (33.0-36.5); MEAN CORPUSCULAR VOLUME 83.2 FL (78-98); MEAN PLATELET VOLUME 8.3 FL (7.4-10.4); MONOCYTES # (AUTO) 0.3 X10'3 (0-0.9); NEUTROPHILS % (AUTO) 77.9 % (42-75); PLATELET COUNT 173 X10'3 (140-440); RED BLOOD COUNT 2.95 X10'6 (4.20-5.60); RED CELL DISTRIBUTION WIDTH 16.8 % (11.5-14.5); WHITE BLOOD COUNT 6.4 X10'3 (4.5-11.0)
[2018-05-31 06:21] LABS: ANION GAP 6 (8-16); CHLORIDE 107 MMOL/L (99-107); POTASSIUM 4.5 MMOL/L (3.5-5.1); SODIUM 142 MMOL/L (135-145); TOTAL CARBON DIOXIDE 28.8 MMOL/L (24-32)
[2018-05-31] MEDS: amLODIPine 5mg tablet PO SCH (07:34)
[2018-05-31] MEDS: gabapentin 300mg capsule PO SCH ×3 (07:47→20:14)
[2018-05-31] MEDS: multivitamins, therapeutics tablet PO SCH (07:47)
[2018-05-31] MEDS: ascorbic acid 500mg tablet PO SCH ×2 (07:48→20:14)
[2018-05-31] MEDS: enoxaparin 40mg/0.4ml syringe SUBCUT SCH (07:49)
[2018-05-31] MEDS ORDERED: CEFEPIME 1 GM in NORMAL SALINE 100ml IV.SOLN IV SCH (08:00)
[2018-05-31] MEDS: potassium cl 20mEq in 1/2 NS 1,000 ML IV SCH ×2 (08:03→17:38)
[2018-05-31] MEDS ORDERED: aspirin 325mg tablet PO SCH (08:30)
[2018-05-31] MEDS ORDERED: mupirocin 2% nasal ointment 1gm UD NS SCH (08:43)
[2018-05-31 10:00] VITALS: BP 110/54
[2018-05-31] MEDS: mupirocin 2% nasal ointment 1gm UD NS SCH ×2 (10:12→20:14)
[2018-05-31 16:02] VITALS: BP 145/66
[2018-05-31 18:00] VITALS: BP 112/76
[2018-05-31] MEDS: celeCOXIB 100mg capsule PO SCH (20:13)
[2018-05-31] MEDS: citalopram 20mg tablet PO SCH (20:14)
[2018-05-31] MEDS: sennosides 8.6mg tablet PO SCH (20:14)
[2018-05-31] MEDS: lactobacillus rhamnosus 10,000 MMU CELLS/CAPSULE PO SCH (20:14)
[2018-05-31] MEDS: oxyCODONE/APAP 10/325mg tablet PO PRN (20:14)
[2018-05-31] MEDS: albuterol 2.5 MG/3 ML nebule NEB PRN (20:40)
[2018-05-31 22:00] VITALS: BP 127/65
[2018-06-01] MEDS: potassium cl 20mEq in 1/2 NS 1,000 ML IV SCH ×2 (01:20→10:15)
[2018-06-01] MEDS: oxyCODONE/APAP 10/325mg tablet PO PRN ×2 (01:28→21:50)
[2018-06-01] MEDS: oxyCODONE/APAP 5-325mg tablet PO PRN ×3 (05:39→17:50)
[2018-06-01 06:09] LABS: BASOPHILS % (AUTO) 0.2 % (0-1); EOSINOPHILS # (AUTO) 0.1 X10'3 (0-0.9); EOSINOPHILS % (AUTO) 2.7 % (0-6); HEMATOCRIT 23.8 % (35.0-45.0); HEMOGLOBIN 7.9 g/dl (12.0-16.0); LYMPHOCYTES # (AUTO) 0.9 X10'3 (1.1-4.8); LYMPHOCYTES % (AUTO) 16.8 % (21-51); MEAN CORPUSCULAR HEMOGLOBIN 27.3 PG (27.0-31.0); MEAN CORPUSCULAR HGB CONC 32.9 % (33.0-36.5); MEAN CORPUSCULAR VOLUME 82.8 FL (78-98); MEAN PLATELET VOLUME 8.6 FL (7.4-10.4); MONOCYTES # (AUTO) 0.3 X10'3 (0-0.9); MONOCYTES % (AUTO) 6.2 % (2-12); NEUTROPHILS % (AUTO) 74.1 % (42-75); PLATELET COUNT 145 X10'3 (140-440); RED BLOOD COUNT 2.88 X10'6 (4.20-5.60); RED CELL DISTRIBUTION WIDTH 16.7 % (11.5-14.5); WHITE BLOOD COUNT 5.4 X10'3 (4.5-11.0)
[2018-06-01] MEDS: mupirocin 2% nasal ointment 1gm UD NS SCH ×2 (08:00→20:29)
[2018-06-01] MEDS: amLODIPine 5mg tablet PO SCH (08:12)
[2018-06-01] MEDS: celeCOXIB 100mg capsule PO SCH ×2 (08:12→20:28)
[2018-06-01] MEDS: gabapentin 300mg capsule PO SCH ×3 (08:12→20:28)
[2018-06-01] MEDS: multivitamins, therapeutics tablet PO SCH (08:12)
[2018-06-01] MEDS: lactobacillus rhamnosus 10,000 MMU CELLS/CAPSULE PO SCH ×2 (08:12→20:28)
[2018-06-01] MEDS: ascorbic acid 500mg tablet PO SCH ×2 (08:12→20:28)
[2018-06-01] MEDS: enoxaparin 40mg/0.4ml syringe SUBCUT SCH (08:13)
[2018-06-01] MEDS ORDERED: CEFEPIME 2 GM in NS 100ml IV.SOLN 100 ML IV SCH (08:47)
[2018-06-01 09:24] LABS: CREATININE 1.26 MG/DL (0.40-0.90); eGFR 42 ML/MIN
[2018-06-01 10:00] VITALS: BP 126/72
[2018-06-01] MEDS: albuterol 2.5 MG/3 ML nebule NEB PRN ×2 (12:22→20:24)
[2018-06-01 18:30] VITALS: BP 137/64
[2018-06-01] MEDS: cefepime 2g/NS 100ml ADVANTAGE 100 ML IV SCH (20:27)
[2018-06-01] MEDS: sennosides 8.6mg tablet PO SCH (20:28)
[2018-06-01] MEDS: citalopram 20mg tablet PO SCH (20:28)
[2018-06-01 22:40] VITALS: BP 107/45
[2018-06-02] MEDS: oxyCODONE/APAP 10/325mg tablet PO PRN ×4 (03:47→15:44)
[2018-06-02 06:00] VITALS: BP 113/48
[2018-06-02 07:02] LABS: BASOPHILS % (AUTO) 0.3 % (0-1); EOSINOPHILS # (AUTO) 0.2 X10'3 (0-0.9); EOSINOPHILS % (AUTO) 4.7 % (0-6); HEMATOCRIT 22.7 % (35.0-45.0); HEMOGLOBIN 7.4 g/dl (12.0-16.0); LYMPHOCYTES # (AUTO) 0.6 X10'3 (1.1-4.8); LYMPHOCYTES % (AUTO) 16.3 % (21-51); MEAN CORPUSCULAR HEMOGLOBIN 26.8 PG (27.0-31.0); MEAN CORPUSCULAR HGB CONC 32.4 % (33.0-36.5); MEAN CORPUSCULAR VOLUME 82.7 FL (78-98); MEAN PLATELET VOLUME 8.7 FL (7.4-10.4); MONOCYTES # (AUTO) 0.2 X10'3 (0-0.9); MONOCYTES % (AUTO) 5.5 % (2-12); NEUTROPHILS # (AUTO) 2.7 X10'3 (1.8-7.7); NEUTROPHILS % (AUTO) 73.2 % (42-75); PLATELET COUNT 136 X10'3 (140-440); RED BLOOD COUNT 2.74 X10'6 (4.20-5.60); RED CELL DISTRIBUTION WIDTH 16.4 % (11.5-14.5); WHITE BLOOD COUNT 3.8 X10'3 (4.5-11.0)
[2018-06-02] MEDS: albuterol 2.5 MG/3 ML nebule NEB PRN (07:22)
[2018-06-02 08:00] VITALS: BP 121/64
[2018-06-02] MEDS: cefepime 2g/NS 100ml ADVANTAGE 100 ML IV SCH (08:32)
[2018-06-02] MEDS: lactobacillus rhamnosus 10,000 MMU CELLS/CAPSULE PO SCH (08:32)
[2018-06-02] MEDS: celeCOXIB 100mg capsule PO SCH (08:32)
[2018-06-02] MEDS: amLODIPine 5mg tablet PO SCH (08:33)
[2018-06-02] MEDS: multivitamins, therapeutics tablet PO SCH (08:33)
[2018-06-02] MEDS: gabapentin 300mg capsule PO SCH ×2 (08:33→13:50)
[2018-06-02] MEDS: ascorbic acid 500mg tablet PO SCH (08:33)
[2018-06-02] MEDS: enoxaparin 40mg/0.4ml syringe SUBCUT SCH (08:34)
[2018-06-02] MEDS: mupirocin 2% nasal ointment 1gm UD NS SCH (08:36)
[2018-06-02 10:00] VITALS: BP 111/59
[2018-06-02] MEDS ORDERED: ASPI-41 PO (12:11)
[2018-06-02] MEDS ORDERED: PER10325T PO (12:35)
[2018-06-02] MEDS ORDERED: Ciprofloxacin PO (12:44)
[2018-06-02] MEDS ORDERED: ciprofloxacin 250mg tablet PO SCH (20:00)
== END 2018-06-02 17:00 | disposition home health service (06) | DRG 481 ==
LOC: PAS IN 09:45 → EDSTATUS 13:00 → ORTHO 4S 15:45
PROVIDERS: ADMIT Orthopaedic Surgery; ATTEND Orthopaedic Surgery
PROC: 0SR90EZ Replacement of Right Hip Joint with Articulating Spacer, Open Approach (ICD-10-PCS; 2018-05-30)
PROC: 0SBC0ZZ Excision of Right Knee Joint, Open Approach (ICD-10-PCS; 2018-05-30)
PROC: 0SP90EZ Removal of Articulating Spacer from Right Hip Joint, Open Approach (ICD-10-PCS; principal; 2018-05-30 12:46)
DX: T84.51XA Infection and inflammatory reaction due to internal right hip prosthesis, initial encounter (principal); D62 Acute posthemorrhagic anemia; F41.9 Anxiety disorder, unspecified; K21.9 Gastro-esophageal reflux disease without esophagitis; I12.9 Hypertensive chronic kidney disease with stage 1 through stage 4 chronic kidney disease, or unspecified chronic kidney disease; N18.9 Chronic kidney disease, unspecified; F32.9 Major depressive disorder, single episode, unspecified; M81.0 Age-related osteoporosis without current pathological fracture; J44.9 Chronic obstructive pulmonary disease, unspecified; E78.5 Hyperlipidemia, unspecified; Y83.1 Surgical operation with implant of artificial internal device as the cause of abnormal reaction of the patient, or of later complication, without mention of misadventure at the time of the procedure; Z89.621 Acquired absence of right hip joint; Z88.0 Allergy status to penicillin; Z88.1 Allergy status to other antibiotic agents; Z79.899 Other long term (current) drug therapy; Z79.82 Long term (current) use of aspirin; Z86.718 Personal history of other venous thrombosis and embolism; Z87.891 Personal history of nicotine dependence
CPT/HCPCS: 36415; 72170; 80051; 82565; 85025; 85651; 86140; 86885; 86900; 86901; 86920; 87070; 87075; 87102; 94640; 94760; 97110; 97116; 97161; 97530; 97535; A4615; A7000; A9272; C1713; C1758; G0378; J0690; J0692; J1170; J1650; J2250; J2274; J2370; J2765; J3010; J3370; J3490; J7030; J7120; P9045

== ENCOUNTER 2018-06-10 14:23 | Emergency (ER) | payer MEDICARE ==
[~2018-06-10] VITALS: Ht 170.2 cm; Wt 65.9 kg
[~2018-06-10 14:23] MED LIST changes: +ASPI-41 PO; +Ciprofloxacin PO; -LACT1CAP65 PO; -MELA10TA2 PO; +PER10325T PO; -acetaminophen 325mg tablet PO ONE; -celeCOXIB 100mg capsule PO ONE; -famotidine 20mg tablet PO ONE; -gabapentin 300mg capsule PO ONE; -metoclopramide 5 mg/ml inj IV ONE; -oxyCODONE SR 10mg (sust. release) tab -2 tabs (20mg) PO ONE; -ringers solution, lacted 1,000 ML IV SCH; -tranexamic acid inj. 1,000 MG in normal saline 100ml IV soln 90 ML IV ONE
[2018-06-10] MEDS ORDERED: HYDROmorphone inj. 0.5 MG/0.5 ML DISP.SYRIN IV ONE (14:30)
[2018-06-10 16:09] VITALS: BP 137/78
== END 2018-06-10 16:50 | disposition home or self-care (01) ==
LOC: ER 14:23
DX: S89.91XA Unspecified injury of right lower leg, initial encounter (principal); M25.551 Pain in right hip; G89.29 Other chronic pain; I10 Essential (primary) hypertension; J44.9 Chronic obstructive pulmonary disease, unspecified; Z90.710 Acquired absence of both cervix and uterus; Z98.890 Other specified postprocedural states; Z88.0 Allergy status to penicillin; Z88.5 Allergy status to narcotic agent; Z91.040 Latex allergy status; Z79.82 Long term (current) use of aspirin; Z79.899 Other long term (current) drug therapy; W19.XXXA Unspecified fall, initial encounter; Y93.89 Activity, other specified; Y92.89 Other specified places as the place of occurrence of the external cause; Y99.8 Other external cause status
CPT/HCPCS: 72170; 73560; 96374; 99284; J1170; A6251

== ENCOUNTER 2018-06-28 12:38 | Emergency (ER) | payer MEDICARE ==
[~2018-06-28] VITALS: Ht 170.2 cm; Wt 65.9 kg
[2018-06-28 13:59] LABS: BASOPHILS # (AUTO) 0.1 X10'3 (0-0.2); BASOPHILS % (AUTO) 0.9 % (0-1); EOSINOPHILS # (AUTO) 0.3 X10'3 (0-0.9); EOSINOPHILS % (AUTO) 2.4 % (0-6); HEMATOCRIT 37.3 % (35.0-45.0); LYMPHOCYTES # (AUTO) 0.9 X10'3 (1.1-4.8); MEAN CORPUSCULAR HEMOGLOBIN 26.6 PG (27.0-31.0); MEAN CORPUSCULAR HGB CONC 32.2 % (33.0-36.5); MEAN CORPUSCULAR VOLUME 82.7 FL (78-98); MEAN PLATELET VOLUME 8.1 FL (7.4-10.4); MONOCYTES # (AUTO) 0.4 X10'3 (0-0.9); MONOCYTES % (AUTO) 3.3 % (2-12); NEUTROPHILS # (AUTO) 9.8 X10'3 (1.8-7.7); NEUTROPHILS % (AUTO) 85.4 % (42-75); PLATELET COUNT 398 X10'3 (140-440); RED BLOOD COUNT 4.52 X10'6 (4.20-5.60); RED CELL DISTRIBUTION WIDTH 16.7 % (11.5-14.5); WHITE BLOOD COUNT 11.5 X10'3 (4.5-11.0)
[2018-06-28 14:13] LABS: ALANINE AMINOTRANSFERASE 15 U/L (12-78); ALBUMIN 4.1 G/DL (3.4-5.0); ALBUMIN/GLOBULIN RATIO 1.1 (1.1-1.5); ALKALINE PHOSPHATASE 164 IU/L (46-116); AMYLASE 32 U/L (25-115); ANION GAP 7 (8-16); ASPARTATE AMINO TRANSFERASE 18 U/L (10-37); BILIRUBIN,TOTAL 0.9 MG/DL (0.1-1.0); BLOOD UREA NITROGEN 14 MG/DL (7-18); BUN/CREATININE RATIO 12.2 (6.6-38.0); CHLORIDE 103 MMOL/L (99-107); CREATININE 1.15 MG/DL (0.40-0.90); GLUCOSE 111 MG/DL (70-104); LIPASE 119 U/L (73-393); POTASSIUM 3.3 MMOL/L (3.5-5.1); SODIUM 145 MMOL/L (135-145); TOTAL CARBON DIOXIDE 34.9 MMOL/L (24-32); TOTAL PROTEIN 7.7 G/DL (6.4-8.2); eGFR 47 ML/MIN
[2018-06-28 14:15] LABS: INR 1.1 INR; PROTHROMBIN TIME 11.1 SECONDS (9.0-12.0)
[2018-06-28 14:24] LABS: CLARITY,URINE SLIGHTLY CLOUDY (Clear); COLOR,URINE YELLOW (Yellow); GLUCOSE, URINE NEGATIVE (Neg); KETONES,URINE TRACE mg/dl (Neg); LEUKOCYTE ESTERASE ,URINE NEGATIVE (Neg); NITRITES, URINE NEGATIVE (Neg); OCCULT BLOOD,URINE NEGATIVE (Neg); PH,URINE 7.5 (4.8-8.0); PROTEIN,URINE 30 mg/dl (Neg); UROBILINOGEN,URINE 0.2 E.U/dL (0.2-1.0)
[2018-06-28 14:27] LABS: UA COLLECTION TYPE STRAIGHT CATH
[2018-06-28 14:32] LABS: BACTERIA,URINE FEW /HPF (Neg); HYALINE CASTS 0-3 /LPF (NEGATIVE); MUCUS STRANDS FEW /LPF (Neg); RBC,URINE 0-2 /HPF (0-2); SQUAMOUS EPITHELIAL CELL,UR MODERATE /LPF (FEW); TRANSITIONAL EPI CELLS,URINE FEW /HPF; WBC,URINE 0-4 /HPF (0-4)
[2018-06-28] MEDS ORDERED: potassium Cl 20 mEq SR tablet PO STA (14:56)
[2018-06-28 15:38] VITALS: BP 149/70
[2018-06-28] MEDS ORDERED: dicyclomine 10mg/ml 2ml ampule IM ONE (16:05)
[2018-06-28] MEDS ORDERED: BISA-155 PO (16:18)
[2018-06-28] MEDS ORDERED: DICY10CA88 PO (16:18)
[2018-06-28] MEDS ORDERED: METR500T4 PO (16:18)
[2018-06-28] MEDS ORDERED: MAGN296S50 PO (16:18)
== END 2018-06-28 18:13 | disposition home or self-care (01) ==
LOC: ER 12:39
DX: K59.00 Constipation, unspecified (principal); K52.9 Noninfective gastroenteritis and colitis, unspecified; I10 Essential (primary) hypertension; J44.9 Chronic obstructive pulmonary disease, unspecified; Z90.710 Acquired absence of both cervix and uterus; Z98.890 Other specified postprocedural states; Z88.0 Allergy status to penicillin; Z88.5 Allergy status to narcotic agent; Z88.8 Allergy status to other drugs, medicaments and biological substances; Z79.82 Long term (current) use of aspirin; Z79.899 Other long term (current) drug therapy
CPT/HCPCS: 36415; 74176; 80053; 81001; 82150; 83690; 85025; 85610; 96372; 99284; J0500; P9612

== ENCOUNTER 2018-11-01 05:19 | Inpatient (IN) | payer MEDICARE | END 2018-11-04 13:10 | LOC: PAS IN 05:19 → ORTHO 4S 14:05 | PROC: 0SR90J9 Replacement of Right Hip Joint with Synthetic Substitute, Cemented, Open Approach (ICD-10-PCS; principal; 2018-11-01 07:04) | PROC: 0SP90JZ Removal of Synthetic Substitute from Right Hip Joint, Open Approach (ICD-10-PCS; 2018-11-01 07:04) | DX: Z89.621 Acquired absence of right hip joint (principal); D62 Acute posthemorrhagic anemia; K90.0 Celiac disease ==

== ENCOUNTER 2019-04-24 09:33 | Emergency (ER) | payer MEDICARE ==
[~2019-04-24] VITALS: Ht 170.2 cm; Wt 68.2 kg
[~2019-04-24 09:33] MED LIST changes: -ALLO100T PO; -AMLO5TAB4 PO; -ASPI-41 PO; +BUDE0.5A11 NEB; -CLON-528 PO; -Ciprofloxacin PO; -HYDR-3972 PO; +LISI1TAB28 PO; +MULT-933 PO; -MUPI22OI30 NAS; +OMEP20TA23 PO; -PER10325T PO; +PROAIR INH; +TRAM50TA2 PO
--- NOTE | 2019-04-24 09:37 | NUR ---
PT IN BED 19 HAVING EKG COMPLETED NOW.
[2019-04-24] MEDS ORDERED: normal saline 1000ml 1,000 ML IV ONE (10:05)
[2019-04-24 10:25] LABS: BASOPHILS % (AUTO) 0.7 % (0-1); EOSINOPHILS # (AUTO) 0.1 X10'3 (0-0.9); EOSINOPHILS % (AUTO) 2.2 % (0-6); HEMATOCRIT 31.3 % (35.0-45.0); HEMOGLOBIN 10.4 g/dl (12.0-16.0); LYMPHOCYTES % (AUTO) 14.3 % (21-51); MEAN CORPUSCULAR HEMOGLOBIN 28.7 PG (27.0-31.0); MEAN CORPUSCULAR HGB CONC 33.4 g/dL (33.0-36.5); MEAN CORPUSCULAR VOLUME 86.1 FL (78-98); MEAN PLATELET VOLUME 7.7 FL (7.4-10.4); MONOCYTES # (AUTO) 0.3 X10'3 (0-0.9); MONOCYTES % (AUTO) 4.6 % (2-12); NEUTROPHILS # (AUTO) 5.3 X10'3 (1.8-7.7); NEUTROPHILS % (AUTO) 78.2 % (42-75); PLATELET COUNT 187 X10'3 (140-440); RED BLOOD COUNT 3.63 X10'6 (4.20-5.60); RED CELL DISTRIBUTION WIDTH 15.7 % (11.5-14.5); WHITE BLOOD COUNT 6.8 X10'3 (4.5-11.0)
[2019-04-24] MEDS ORDERED: ondansetron/PF 4mg/2ml inj IV ONE (10:35)
[2019-04-24 10:41] LABS: ALANINE AMINOTRANSFERASE 15 U/L (12-78); ALBUMIN 3.7 G/DL (3.4-5.0); ALBUMIN/GLOBULIN RATIO 1.1 (1.1-1.5); ALKALINE PHOSPHATASE 97 IU/L (46-116); ANION GAP 9 (8-16); ASPARTATE AMINO TRANSFERASE 13 U/L (10-37); BILIRUBIN,TOTAL 0.6 MG/DL (0.1-1.0); BLOOD UREA NITROGEN 19 MG/DL (7-18); CALCIUM 8.9 MG/DL (8.5-10.1); CHLORIDE 105 MMOL/L (99-107); CREATININE 1.19 MG/DL (0.40-0.90); GLUCOSE 101 MG/DL (70-104); POTASSIUM 3.9 MMOL/L (3.5-5.1); SODIUM 143 MMOL/L (135-145); TOTAL CARBON DIOXIDE 29.1 MMOL/L (24-32); TOTAL PROTEIN 7.1 G/DL (6.4-8.2); eGFR 45 ML/MIN
[2019-04-24 10:52] VITALS: BP 137/63
[2019-04-24 11:02] LABS: PARTIAL THROMBOPLASTIN TIME 28 SECONDS (22-32)
[2019-04-24 11:09] LABS: CLARITY,URINE CLEAR (Clear); COLOR,URINE YELLOW (Yellow); GLUCOSE, URINE NEGATIVE (Neg); KETONES,URINE NEGATIVE (Neg); LEUKOCYTE ESTERASE ,URINE NEGATIVE (Neg); NITRITES, URINE NEGATIVE (Neg); OCCULT BLOOD,URINE TRACE-LYSED (Neg); PROTEIN,URINE NEGATIVE (Neg); UROBILINOGEN,URINE 0.2 E.U/dL (0.2-1.0)
[2019-04-24 11:16] LABS: UA COLLECTION TYPE CLN CATCH MIDSTREAM
[2019-04-24 11:19] LABS: BACTERIA,URINE NONE SEEN /HPF (Neg); MUCUS STRANDS NONE SEEN /LPF (Neg); SQUAMOUS EPITHELIAL CELL,UR MODERATE /LPF (FEW); WBC,URINE 0-4 /HPF (0-4)
[2019-04-24] MEDS ORDERED: ONDA8TAB6 PO (11:21)
== END 2019-04-24 11:38 | disposition home or self-care (01) ==
LOC: ER 09:34
DX: B34.9 Viral infection, unspecified (principal); R11.2 Nausea with vomiting, unspecified; I10 Essential (primary) hypertension; J44.9 Chronic obstructive pulmonary disease, unspecified; M10.9 Gout, unspecified; F32.9 Major depressive disorder, single episode, unspecified; Z90.710 Acquired absence of both cervix and uterus; Z98.890 Other specified postprocedural states; Z88.0 Allergy status to penicillin; Z88.8 Allergy status to other drugs, medicaments and biological substances; Z88.5 Allergy status to narcotic agent; Z79.84 Long term (current) use of oral hypoglycemic drugs; Z79.899 Other long term (current) drug therapy
CPT/HCPCS: 36415; 71045; 80053; 81001; 83605; 84145; 84484; 85025; 85610; 85730; 87040; 93005; 96361; 96374; 99284; J2405; J7030

== ENCOUNTER 2019-05-10 11:33 | Outpatient (CLI) | payer MEDICARE ==
[~2019-05-10 11:33] MED LIST changes: +ONDA8TAB6 PO
[2019-05-10 12:10] LABS: ABG BASE EXCESS 1.1 mmol/L (-2.0-3.0); ABG HCO3 25.8 mmol/L (22.0-26.0); ABG OXYGEN SATURATION 94.9 % (95-98); ABG PH (T) 7.416 (7.350-7.450); ABG PO2 (T) 74.1 mmHg (83-108); ALLEN'S TEST Positive; FCOHb 0.1 % (0.5-1.5); FO2Hb 94.8 % (94-100); TOTAL HEMOGLOBIN 12.1 G/dl (12.0-16.0)
== END 2019-05-10 23:59 | disposition home or self-care (01) ==
LOC: LAB 11:33
PROVIDERS: ATTEND Physician Assistant
DX: J42 Unspecified chronic bronchitis (principal)
CPT/HCPCS: 36600; 82803; 85018

== ENCOUNTER 2020-06-29 13:03 | Emergency (ER) | payer MEDICARE ==
[~2020-06-29] VITALS: Ht 170.2 cm; Wt 77.3 kg
[~2020-06-29 13:03] MED LIST changes: -LISI1TAB28 PO; +LISI1TAB51 PO
[2020-06-29 13:09] VITALS: BP 148/76
[2020-06-29] MEDS ORDERED: bacitracin 15gm ointment TP ONE (15:30)
== END 2020-06-29 16:46 | disposition home or self-care (01) ==
LOC: ER 13:06
DX: L70.8 Other acne (principal); I10 Essential (primary) hypertension; J44.9 Chronic obstructive pulmonary disease, unspecified; M10.9 Gout, unspecified; Z90.710 Acquired absence of both cervix and uterus; Z98.890 Other specified postprocedural states; Z88.0 Allergy status to penicillin; Z88.6 Allergy status to analgesic agent; Z88.8 Allergy status to other drugs, medicaments and biological substances; Z79.82 Long term (current) use of aspirin; Z79.899 Other long term (current) drug therapy
CPT/HCPCS: 87070; 87077; 87186; 99283

== ENCOUNTER 2021-04-24 10:25 | Emergency (ER) | payer MEDICARE, MEDICAID ==
[~2021-04-24] VITALS: Ht 170.2 cm; Wt 90.0 kg
[2021-04-24 13:19] LABS: BASOPHILS # (AUTO) 0.1 X10'3 (0-0.2); BASOPHILS % (AUTO) 0.7 % (0-1); EOSINOPHILS # (AUTO) 0.1 X10'3 (0-0.9); EOSINOPHILS % (AUTO) 1.5 % (0-6); HEMATOCRIT 32.4 % (35.0-45.0); HEMOGLOBIN 10.6 g/dl (12.0-16.0); LYMPHOCYTES # (AUTO) 0.9 X10'3 (1.1-4.8); LYMPHOCYTES % (AUTO) 10.3 % (21-51); MEAN CORPUSCULAR HEMOGLOBIN 27.3 PG (27.0-31.0); MEAN CORPUSCULAR HGB CONC 32.7 g/dL (33.0-36.5); MEAN CORPUSCULAR VOLUME 83.6 FL (78-98); MONOCYTES # (AUTO) 0.5 X10'3 (0-0.9); MONOCYTES % (AUTO) 5.6 % (2-12); NEUTROPHILS % (AUTO) 81.9 % (42-75); PLATELET COUNT 274 X10'3 (140-440); RED BLOOD COUNT 3.88 X10'6 (4.20-5.60); RED CELL DISTRIBUTION WIDTH 16.8 % (11.5-14.5); WHITE BLOOD COUNT 8.5 X10'3 (4.5-11.0)
[2021-04-24 13:25] LABS: D-DIMER 1.71 MG/L FEU (0-0.50)
[2021-04-24] MEDS ORDERED: acetaminophen 325mg tablet PO ONE (13:25)
[2021-04-24 13:30] LABS: ALANINE AMINOTRANSFERASE 17 U/L (12-78); ALBUMIN 3.7 G/DL (3.4-5.0); ALKALINE PHOSPHATASE 139 IU/L (46-116); ANION GAP 9 (8-16); ASPARTATE AMINO TRANSFERASE 19 U/L (10-37); BILIRUBIN,TOTAL 0.7 MG/DL (0.1-1.0); BLOOD UREA NITROGEN 17 MG/DL (7-18); BUN/CREATININE RATIO 12.5 (6.6-38.0); CALCIUM 9.1 MG/DL (8.5-10.1); CHLORIDE 108 MMOL/L (99-107); CREATININE 1.36 MG/DL (0.40-0.90); GLUCOSE 95 MG/DL (70-104); LIPASE < 50 U/L (73-393); POTASSIUM 3.6 MMOL/L (3.5-5.1); SODIUM 145 MMOL/L (135-145); TOTAL CARBON DIOXIDE 27.8 MMOL/L (24-32); TOTAL PROTEIN 7.4 G/DL (6.4-8.2); eGFR 38 ML/MIN
[2021-04-24] MEDS ORDERED: normal saline 1000ML IV soln IVB ONE (13:35)
[2021-04-24 14:16] LABS: UA COLLECTION TYPE CLN CATCH MIDSTREAM
[2021-04-24 14:17] LABS: CLARITY,URINE TURBID (Clear); COLOR,URINE YELLOW (Yellow)
[2021-04-24 14:18] LABS: GLUCOSE, URINE NEGATIVE (Neg); KETONES,URINE TRACE mg/dl (Neg); LEUKOCYTE ESTERASE ,URINE NEGATIVE (Neg); NITRITES, URINE NEGATIVE (Neg); OCCULT BLOOD,URINE SMALL (Neg); PROTEIN,URINE 100 mg/dl (Neg); UROBILINOGEN,URINE 0.2 E.U/dL (0.2-1.0)
[2021-04-24 14:29] LABS: HYALINE CASTS 0-3 /LPF (NEGATIVE); MUCUS STRANDS MODERATE /LPF (Neg); SQUAMOUS EPITHELIAL CELL,UR FEW /LPF (FEW)
[2021-04-24 14:30] LABS: BACTERIA,URINE 4+ /HPF (Neg); RBC,URINE 0-2 /HPF (0-2)
[2021-04-24] MEDS ORDERED: iohexol 350MG/ML 100ml bottle IV ONE (14:40)
[2021-04-24] MEDS ORDERED: proCHLORperazine 10mg tablet PO ONE (16:10)
[2021-04-24] MEDS ORDERED: diphenhydrAMINE 25mg capsule PO ONE (16:10)
[2021-04-24 16:40] VITALS: BP 188/77
[2021-04-24] MEDS ORDERED: PROC-8 PO (16:54)
--- NOTE | 2021-04-24 17:09 | NUR ---
Patient declines to have family retrieve her oxygen tank from home and also declines to have medical transport home. Doctor aware.
[2021-04-24] MEDS ORDERED: CIPR-260 PO (17:15)
== END 2021-04-24 17:27 | disposition home or self-care (01) ==
LOC: ER 10:26
DX: G43.909 Migraine, unspecified, not intractable, without status migrainosus (principal); Z20.822 Contact with and (suspected) exposure to COVID-19; J44.9 Chronic obstructive pulmonary disease, unspecified; M81.0 Age-related osteoporosis without current pathological fracture; I12.0 Hypertensive chronic kidney disease with stage 5 chronic kidney disease or end stage renal disease; N18.30 Chronic kidney disease, stage 3 unspecified; Z86.2 Personal history of diseases of the blood and blood-forming organs and certain disorders involving the immune mechanism; Z90.710 Acquired absence of both cervix and uterus; Z88.0 Allergy status to penicillin; Z88.8 Allergy status to other drugs, medicaments and biological substances; Z79.82 Long term (current) use of aspirin; Z79.899 Other long term (current) drug therapy
CPT/HCPCS: 36415; 71045; 71275; 74174; 80053; 81001; 83690; 84484; 85025; 85379; 87077; 87088; 87186; 87635; 93005; 96360; 96361; 99285; C9803; J7030; Q0163; Q9967; Q0164

== ENCOUNTER 2022-03-17 09:54 | Emergency (ER) | payer MEDICARE, MEDICAID ==
[~2022-03-17] VITALS: Ht 170.2 cm; Wt 83.6 kg
[~2022-03-17 09:54] MED LIST changes: +CIPR-260 PO; +PROC-8 PO
[2022-03-17] MEDS ORDERED: LIDOcaine 1% 30ml preserv. free vial IJ STA (10:29)
[2022-03-17] MEDS ORDERED: MORP15TA PO ×2 (13:58)
[2022-03-17] MEDS ORDERED: morphine IR (immed. release) 30mg tablet PO ONE (14:00)
[2022-03-17 15:49] VITALS: BP 135/71
[2022-03-20] MEDS ORDERED: CLON-368 PO (17:09)
[2022-03-20] MEDS ORDERED: ALLO100T16 PO (17:09)
[2022-03-20] MEDS ORDERED: AMLO5TAB16 PO (17:09)
[2022-03-20] MEDS ORDERED: HYDR-3972 PO (17:09)
[2022-03-20] MEDS ORDERED: ARFO15VI NEB (17:09)
[2022-03-20] MEDS ORDERED: CALC500T63 PO (17:09)
[2022-03-20] MEDS ORDERED: SERT-434 PO (17:09)
[2022-03-20] MEDS ORDERED: CHOL20002 PO (17:09)
[2022-03-20] MEDS ORDERED: LANS30CA56 PO (17:09)
[2022-03-20] MEDS ORDERED: BENZ-49 PO (17:09)
== END 2022-03-17 15:00 | disposition home or self-care (01) ==
LOC: ER 09:54
DX: S52.501A Unspecified fracture of the lower end of right radius, initial encounter for closed fracture (principal); S52.611A Displaced fracture of right ulna styloid process, initial encounter for closed fracture; M25.531 Pain in right wrist; I10 Essential (primary) hypertension; J44.9 Chronic obstructive pulmonary disease, unspecified; M10.9 Gout, unspecified; F32.A Depression, unspecified; Z86.2 Personal history of diseases of the blood and blood-forming organs and certain disorders involving the immune mechanism; Z90.710 Acquired absence of both cervix and uterus; Z98.890 Other specified postprocedural states; Z88.0 Allergy status to penicillin; Z88.5 Allergy status to narcotic agent; Z88.8 Allergy status to other drugs, medicaments and biological substances; Z79.82 Long term (current) use of aspirin; Z79.2 Long term (current) use of antibiotics; Z79.899 Other long term (current) drug therapy; W18.09XA Striking against other object with subsequent fall, initial encounter; Y93.01 Activity, walking, marching and hiking; Y92.89 Other specified places as the place of occurrence of the external cause; Y99.8 Other external cause status
CPT/HCPCS: 25605; 73100; 73110; 99284; A4565; A6446; A6449

== ENCOUNTER 2022-03-23 10:38 | Day surgery (SDC) | payer MEDICARE, MEDICAID ==
[~2022-03-23] VITALS: Ht 170.2 cm; Wt 81.0 kg
[2022-03-23] VITALS (10 sets, daily range): BP systolic 92–117; BP diastolic 49–68
[~2022-03-23 10:38] MED LIST changes: +ALLO100T16 PO; +AMLO5TAB16 PO; +ARFO15VI NEB; -ASPI-845 PO; +BENZ-49 PO; +CALC500T63 PO; +CHOL20002 PO; -CIPR-260 PO; +CLON-368 PO; -DOCU-28 PO; -ESCI20TA PO; +HYDR-3972 PO; +LANS30CA56 PO; -MULT-933 PO; -OMEP20TA23 PO; -ONDA8TAB6 PO; -PROAIR INH; -PROC-8 PO; +SERT-434 PO; -TRAM50TA2 PO; +famotidine 20mg tablet PO ONE; +ringers solution, lacted 1,000 ML IV SCH
[2022-03-23] MEDS ORDERED: clindamycin-Cleocin 900mg/D5W 50 ML IV ONE (12:15)
[2022-03-23 12:38] LABS: BASOPHILS # (AUTO) 0.1 X10'3 (0-0.2); BASOPHILS % (AUTO) 0.7 % (0-1); EOSINOPHILS # (AUTO) 0.3 X10'3 (0-0.9); EOSINOPHILS % (AUTO) 4.4 % (0-6); LYMPHOCYTES % (AUTO) 13.5 % (21-51); MEAN CORPUSCULAR HEMOGLOBIN 27.4 PG (27.0-31.0); MEAN CORPUSCULAR HGB CONC 32.8 g/dL (33.0-36.5); MEAN CORPUSCULAR VOLUME 83.5 FL (78-98); MEAN PLATELET VOLUME 8.4 FL (7.4-10.4); MONOCYTES # (AUTO) 0.3 X10'3 (0-0.9); MONOCYTES % (AUTO) 4.5 % (2-12); NEUTROPHILS # (AUTO) 5.7 X10'3 (1.8-7.7); NEUTROPHILS % (AUTO) 76.9 % (42-75); PRE OP HEMATOCRIT 26.1 % (35.0-45.0); PRE OP PLATELET COUNT 218 X10'3 (140-440); RED BLOOD COUNT 3.12 X10'6 (4.20-5.60); RED CELL DISTRIBUTION WIDTH 17.6 % (11.5-14.5)
[2022-03-23 12:40] LABS: PRE OP HEMOGLOBIN 8.6 g/dL (12.0-16.0)
[2022-03-23 12:54] LABS: ALBUMIN 3.2 G/DL (3.4-5.0); ALBUMIN/GLOBULIN RATIO 0.9 (1.1-1.5); ALKALINE PHOSPHATASE 144 IU/L (46-116); BLOOD UREA NITROGEN 36 MG/DL (7-18); BUN/CREATININE RATIO 21.2 (6.6-38.0); CHLORIDE 104 MMOL/L (99-107); PRE OP ALT 16 U/L (30-65); PRE OP ANION GAP 7 (8-16); PRE OP AST 18 U/L (10-37); PRE OP BILIRUB, TOTAL 0.4 MG/DL (0.0-1.0); PRE OP GLUCOSE 95 MG/DL (70-104); PRE OP POTASSIUM 4.2 MMOL/L (3.4-5.1); PRE OP SODIUM 139 MMOL/L (135-145); TOTAL CARBON DIOXIDE 28.2 MMOL/L (24-32); TOTAL PROTEIN 6.7 G/DL (6.4-8.2); eGFR 29 ML/MIN
[2022-03-23] MEDS ORDERED: BUPIVAcaine/PF 2.5 mg/ml (0.25%) 30ml vial ONE (12:56)
[2022-03-23] MEDS ORDERED: fentaNYL/PF 50MCG/1 ML 2ML syringe IV PRN ×2 (13:00)
[2022-03-23] MEDS ORDERED: ondansetron/PF 4mg/2ml inj IV PRN (13:00)
[2022-03-23] MEDS ORDERED: hydrALAZINE 20mg/ml inj. IV PRN (13:00)
[2022-03-23] MEDS ORDERED: labetalol 20mg/4ml (5mg/ml) syringe IV PRN (13:00)
[2022-03-23] MEDS ORDERED: ringers solution, lacted 1,000 ML IV SCH (13:00)
[2022-03-23] MEDS ORDERED: morphine 4 MG/ML inj SYRINge IV PRN (13:00)
[2022-03-23] MEDS ORDERED: morphine 2 MG/ML inj. syringe IV PRN (13:00)
[2022-03-23] MEDS ORDERED: dexmedetomidine 200mcg/2ml inj. IV ONE (13:02)
[2022-03-23] MEDS ORDERED: ROPIVAcaine 0.5% (5mg/ml) 30ml vial ONE (13:02)
[2022-03-23] MEDS ORDERED: dexamethasone sod phosphate 4mg/ml inj. ONE (13:07)
[2022-03-23] MEDS ORDERED: ceFAZolin 1000mg inj IV ONE (13:10)
[2022-03-23] MEDS ORDERED: morphine 4 MG/ML inj SYRINge IV ONE (14:05)
--- NOTE | 2022-03-23 16:11 | NUR ---
Received from OR via [facility] IN STABLE CONDITION , accompanied by TICKET COLLECTOR OR USHER ANDAnesthesiologist and TICKET COLLECTOR OR USHER report given by TICKET COLLECTOR OR USHER AND Anesthesiolgist. Addendum: 03/23/22 at 1702 by Trang Alejandra RN Amended: Links added.
--- NOTE | 2022-03-23 17:41 | NUR ---
PATIENT DISCHARGED FROM PACU IN STABLE CONDITION AFTER WRITTEN AND VERBAL DISCHARGE INSTRUCTIONS. PATIENT AND DAUGHTERS GAVE VERBAL UNDERSTANDING OF INSTRUCTIONS GIVEN. PATIENT LEFT FACILITY VIA WHEELCHAIR WITH RN. Addendum: 03/23/22 at 1811 by Trang Alejandra RN Amended: Links added.
== END 2022-03-23 17:41 | disposition home or self-care (01) ==
LOC: PAS 10:38
PROVIDERS: ATTEND Orthopaedic Surgery
DX: S52.551A Other extraarticular fracture of lower end of right radius, initial encounter for closed fracture (principal); F32.9 Major depressive disorder, single episode, unspecified; K21.9 Gastro-esophageal reflux disease without esophagitis; M19.90 Unspecified osteoarthritis, unspecified site; W19.XXXA Unspecified fall, initial encounter; Y93.89 Activity, other specified; I12.9 Hypertensive chronic kidney disease with stage 1 through stage 4 chronic kidney disease, or unspecified chronic kidney disease; Y92.89 Other specified places as the place of occurrence of the external cause; Y99.8 Other external cause status; G89.18 Other acute postprocedural pain; Z79.899 Other long term (current) drug therapy; Z98.890 Other specified postprocedural states; Z96.641 Presence of right artificial hip joint; Z90.710 Acquired absence of both cervix and uterus; N18.30 Chronic kidney disease, stage 3 unspecified; Z88.6 Allergy status to analgesic agent; Z88.0 Allergy status to penicillin; Z87.891 Personal history of nicotine dependence
CPT/HCPCS: 25607; 36415; 64417; 76942; 80053; 82948; 85025; 87811; 93005; A6222; C1713; J1100; J2270; J2795; J3490; J7030; J7120; Z7506; Z7508; Z7512; A4565; A4615; A6449; A7000

== ENCOUNTER 2022-07-21 09:59 | Inpatient (IN) | payer MEDICARE, MEDICAID ==
[~2022-07-21] VITALS: Ht 170.2 cm; Wt 65.0 kg
[~2022-07-21 09:59] MED LIST changes: -BENZ-49 PO; +TES100C PO; -famotidine 20mg tablet PO ONE; -ringers solution, lacted 1,000 ML IV SCH
[2022-07-21] MEDS ORDERED: albuterol 2.5 MG/3 ML nebule CONTNEB PRN (10:40)
[2022-07-21] MEDS ORDERED: magnesium 2GM in 50ml NS 50 ML IV ONE (10:40)
[2022-07-21] MEDS ORDERED: methylPREDNISolone sod succ 125mg/2ml vial IV ONE (10:40)
[2022-07-21 11:03] LABS: BASOPHILS % (AUTO) 0.7 % (0-1); EOSINOPHILS # (AUTO) 0.2 X10'3 (0-0.9); EOSINOPHILS % (AUTO) 3.7 % (0-6); HEMATOCRIT 29.1 % (35.0-45.0); HEMOGLOBIN 9.5 g/dl (12.0-16.0); LYMPHOCYTES # (AUTO) 0.6 X10'3 (1.1-4.8); LYMPHOCYTES % (AUTO) 9.8 % (21-51); MEAN CORPUSCULAR HEMOGLOBIN 26.9 PG (27.0-31.0); MEAN CORPUSCULAR HGB CONC 32.5 g/dL (33.0-36.5); MEAN CORPUSCULAR VOLUME 82.8 FL (78-98); MEAN PLATELET VOLUME 8.2 FL (7.4-10.4); MONOCYTES # (AUTO) 0.4 X10'3 (0-0.9); MONOCYTES % (AUTO) 7.1 % (2-12); NEUTROPHILS # (AUTO) 4.7 X10'3 (1.8-7.7); NEUTROPHILS % (AUTO) 78.7 % (42-75); PLATELET COUNT 220 X10'3 (140-440); RED BLOOD COUNT 3.52 X10'6 (4.20-5.60); RED CELL DISTRIBUTION WIDTH 16.9 % (11.5-14.5)
[2022-07-21 11:33] LABS: ALANINE AMINOTRANSFERASE 11 U/L (12-78); ALBUMIN 3.2 G/DL (3.4-5.0); ALBUMIN/GLOBULIN RATIO 0.9 (1.1-1.5); ALKALINE PHOSPHATASE 125 IU/L (46-116); ANION GAP 11 (8-16); ASPARTATE AMINO TRANSFERASE 17 U/L (10-37); BILIRUBIN,TOTAL 0.3 MG/DL (0.1-1.0); BLOOD UREA NITROGEN 39 MG/DL (7-18); BUN/CREATININE RATIO 17.6 (6.6-38.0); CALCIUM 9.3 MG/DL (8.5-10.1); CHLORIDE 101 MMOL/L (99-107); CREATININE 2.22 MG/DL (0.40-0.90); GLUCOSE 123 MG/DL (70-104); POTASSIUM 3.3 MMOL/L (3.5-5.1); SODIUM 140 MMOL/L (135-145); TOTAL CARBON DIOXIDE 27.9 MMOL/L (24-32); TOTAL PROTEIN 6.9 G/DL (6.4-8.2); eGFR 22 ML/MIN
[2022-07-21] MEDS ORDERED: heparin 10,000 units/1 ML INJ IV ONE ×2 (11:55)
[2022-07-21] MEDS ORDERED: aspirin 81mg tab.chew PO ONE (11:55)
[2022-07-21] MEDS: heparin 25,000 UNIT/250ml bag 250 ML IV PRN (12:22)
[2022-07-21] MEDS ORDERED: ALBU17AE26 IH (13:20)
[2022-07-21] MEDS ORDERED: LISI20TA28 PO (13:21)
[2022-07-21] MEDS ORDERED: ESTR42.510 VG (13:22)
[2022-07-21] MEDS ORDERED: HYDR12.55 PO (13:23)
[2022-07-21] MEDS ORDERED: ACET-1995 PO (13:24)
[2022-07-21 13:25] LABS: APTT > 139 SECONDS (22-32)
[2022-07-21] MEDS ORDERED: potassium Cl 40MEQ/1/2NS 520ml 520 ML IV PRN (14:05)
[2022-07-21] MEDS ORDERED: magnesium 4gm in 100ml NS 100 ML IV PRN (14:05)
[2022-07-21] MEDS ORDERED: magnesium hydroxide 30ml (MOM) UD suspension PO PRN (14:05)
[2022-07-21] MEDS ORDERED: acetaminophen 325mg tablet PO PRN (14:05)
[2022-07-21] MEDS ORDERED: potassium Cl 20 mEq SR tablet PO PRN ×2 (14:05)
[2022-07-21] MEDS ORDERED: mag hydrox/Alum hydrox/simeth 30ml oral suspension PO PRN (14:05)
[2022-07-21] MEDS ORDERED: ondansetron/PF 4mg/2ml inj IV PRN (14:05)
[2022-07-21] MEDS ORDERED: magnesium Cl slow-release 64mg tablet PO PRN (14:05)
[2022-07-21] MEDS ORDERED: PERFLUTREN PROTEIN-A MICROSPHR (Optison) 0.22 MG/ML 3ML VIAL IV ONE (14:15)
[2022-07-21] MEDS: normal saline 1000ml 1,000 ML IV SCH (14:45)
[2022-07-21] MEDS: ipratropium/albuterol 3ml nebule NEB SCH ×3 (15:00→22:59)
--- NOTE | 2022-07-21 15:23 | NUR ---
Patient in room ED 1. I have received report from carlee rn and had the opportunity to ask questions and assume patient care.
[2022-07-21 15:45] VITALS: BP 122/59
[2022-07-21 18:00] VITALS: BP 112/47
[2022-07-21] MEDS: docusate sod 100mg capsule PO SCH (20:00)
[2022-07-21] MEDS: K and/or MAG REPLACEMENT MC SCH (20:00)
[2022-07-21] MEDS: methylPREDNISolone sod succ 125mg/2ml vial IV SCH (20:35)
[2022-07-21] MEDS: doxycycline inj 100 MG in normal saline 100ml IV soln 100 ML IV SCH (20:35)
[2022-07-21 22:00] VITALS: BP 118/55
--- NOTE | 2022-07-21 22:12 | NUR ---
Spoke with Dr. Denney re: Potassium replacement and starting home meds.
[2022-07-21] MEDS ORDERED: benzonatate 100mg capsule PO PRN (22:15)
[2022-07-21] MEDS ORDERED: albuterol 2.5 MG/3 ML nebule NEB SCH (22:15)
[2022-07-22 02:00] VITALS: BP 125/61
[2022-07-22 02:20] LABS: BASOPHILS % (AUTO) 0.2 % (0-1); EOSINOPHILS % (AUTO) 0.1 % (0-6); HEMATOCRIT 26.6 % (35.0-45.0); HEMOGLOBIN 8.9 g/dl (12.0-16.0); LYMPHOCYTES # (AUTO) 0.2 X10'3 (1.1-4.8); LYMPHOCYTES % (AUTO) 7.6 % (21-51); MEAN CORPUSCULAR HEMOGLOBIN 27.1 PG (27.0-31.0); MEAN CORPUSCULAR HGB CONC 33.3 g/dL (33.0-36.5); MEAN CORPUSCULAR VOLUME 81.4 FL (78-98); MEAN PLATELET VOLUME 8.4 FL (7.4-10.4); MONOCYTES # (AUTO) 0.1 X10'3 (0-0.9); MONOCYTES % (AUTO) 2.3 % (2-12); NEUTROPHILS # (AUTO) 2.7 X10'3 (1.8-7.7); NEUTROPHILS % (AUTO) 89.8 % (42-75); PLATELET COUNT 213 X10'3 (140-440); RED BLOOD COUNT 3.27 X10'6 (4.20-5.60); RED CELL DISTRIBUTION WIDTH 16.7 % (11.5-14.5); WHITE BLOOD COUNT 3.1 X10'3 (4.5-11.0)
[2022-07-22 02:24] LABS: ANION GAP 12 (8-16); BLOOD UREA NITROGEN 47 MG/DL (7-18); BUN/CREATININE RATIO 22.2 (6.6-38.0); CHLORIDE 100 MMOL/L (99-107); CREATININE 2.12 MG/DL (0.40-0.90); GLUCOSE 147 MG/DL (70-104); MAGNESIUM 2.2 MG/DL (1.5-2.4); POTASSIUM 3.8 MMOL/L (3.5-5.1); SODIUM 138 MMOL/L (135-145); eGFR 23 ML/MIN
[2022-07-22] MEDS: ipratropium/albuterol 3ml nebule NEB SCH ×6 (03:00→23:08)
[2022-07-22] MEDS: albuterol 2.5 MG/3 ML nebule NEB SCH ×5 (03:09→23:11)
[2022-07-22] MEDS ORDERED: heparin 10,000 units/1 ML INJ IV SCH (03:25)
[2022-07-22] MEDS: heparin 10,000 units/1 ML INJ IV PRN ×2 (04:00→16:28)
[2022-07-22 06:00] VITALS: BP 104/43
--- NOTE | 2022-07-22 06:28 | NUR ---
Patient in room PCU 3028. I have received report from MICHAELLE FUENTES and had the opportunity to ask questions and assume patient care. NOTIFIED NOC ALFREDO TYLENOL REASSESMENT NOT DONE
[2022-07-22] MEDS: methylPREDNISolone sod succ 125mg/2ml vial IV SCH ×2 (07:01→20:00)
[2022-07-22] MEDS: docusate sod 100mg capsule PO SCH ×2 (07:01→20:00)
[2022-07-22] MEDS: doxycycline inj 100 MG in normal saline 100ml IV soln 100 ML IV SCH ×2 (07:08→20:00)
[2022-07-22] MEDS: lisinopril 20mg tablet PO SCH (07:16)
[2022-07-22] MEDS ORDERED: allopurinol 100mg tablet PO SCH (08:00)
[2022-07-22] MEDS ORDERED: non-formulary drug (Arformoterol Tartrate (Brovana) 1 VIAL) NEB SCH (08:00)
[2022-07-22] MEDS: K and/or MAG REPLACEMENT MC SCH ×2 (08:00→20:00)
[2022-07-22] MEDS: clonazePAM 0.5mg tablet PO SCH (08:48)
[2022-07-22] MEDS: heparin 25,000 UNIT/250ml bag 250 ML IV PRN ×2 (09:51→16:26)
[2022-07-22] MEDS ORDERED: FLU VACC QS2022-23(6MOS UP)/PF 60 MCG/0.5 ML SYRINGE IMVAC ONE (11:00)
[2022-07-22 11:03] VITALS: BP 133/81
--- NOTE | 2022-07-22 12:50 | NUR ---
Malnutrition consult: Pt reports 2-13 lb wt loss with decreased appetite per malnutrition risk screen with RN. Pt seen at bedside reports UBW ~180 lbs and current wt being ~170 lbs with wt loss occurring over the course of a year r/t being sick with UTIs and breathing issues. However pt then reports she had previously gained wt following shelter r/t decreased activity. If pt truly lost reported wt this would be non-significant wt loss of 5% in one year. Pt endorses a good appetite which is evident with documented 75-100% PO intake during admit. Pt reports eating well CIVIL ESTIMATOR stating she usually only eats two meals a day. Pt with no documented significant decrease in muscle strength or edema. No visible fat or muscle wasting appreciated. Pt currently lacks a minimum of two criteria for malnutrition. Patient's food preferences were obtained and d/w dietary: no scrambled eggs; omelettes and hard boiled eggs to sub. Pt denies difficulty chewing/swallowing or constipation/diarrhea. Will continue to follow. Addendum: 07/22/22 at [address] Amended: Links added.
[2022-07-22 18:00] VITALS: BP 100/47
--- NOTE | 2022-07-22 18:17 | NUR ---
Problems reprioritized. Patient report given, questions answered & plan of care reviewed with MINDY FUENTES.
[2022-07-22] MEDS ORDERED: sertraline 50mg tablet PO SCH (21:00)
[2022-07-23 02:00] VITALS: BP 145/60
[2022-07-23] MEDS: ipratropium/albuterol 3ml nebule NEB SCH ×3 (02:56→10:50)
[2022-07-23 03:09] LABS: BASOPHILS % (AUTO) 0.2 % (0-1); EOSINOPHILS % (AUTO) 0.3 % (0-6); HEMATOCRIT 27.4 % (35.0-45.0); HEMOGLOBIN 8.8 g/dl (12.0-16.0); LYMPHOCYTES # (AUTO) 0.8 X10'3 (1.1-4.8); LYMPHOCYTES % (AUTO) 11.8 % (21-51); MEAN CORPUSCULAR HEMOGLOBIN 26.3 PG (27.0-31.0); MEAN CORPUSCULAR HGB CONC 32.1 g/dL (33.0-36.5); MEAN PLATELET VOLUME 8.4 FL (7.4-10.4); MONOCYTES # (AUTO) 0.4 X10'3 (0-0.9); MONOCYTES % (AUTO) 6.8 % (2-12); NEUTROPHILS # (AUTO) 5.4 X10'3 (1.8-7.7); NEUTROPHILS % (AUTO) 80.9 % (42-75); PLATELET COUNT 241 X10'3 (140-440); RED BLOOD COUNT 3.35 X10'6 (4.20-5.60); RED CELL DISTRIBUTION WIDTH 16.9 % (11.5-14.5); WHITE BLOOD COUNT 6.6 X10'3 (4.5-11.0)
[2022-07-23 03:34] LABS: ALBUMIN 2.6 G/DL (3.4-5.0); ANION GAP 12 (8-16); BLOOD UREA NITROGEN 56 MG/DL (7-18); BUN/CREATININE RATIO 26.3 (6.6-38.0); CALCIUM 8.4 MG/DL (8.5-10.1); CHLORIDE 102 MMOL/L (99-107); CREATININE 2.13 MG/DL (0.40-0.90); GLUCOSE 98 MG/DL (70-104); MAGNESIUM 2.1 MG/DL (1.5-2.4); SODIUM 141 MMOL/L (135-145); TOTAL CARBON DIOXIDE 26.6 MMOL/L (24-32); eGFR 23 ML/MIN
[2022-07-23] MEDS: albuterol 2.5 MG/3 ML nebule NEB SCH ×2 (04:00→08:00)
[2022-07-23] MEDS: heparin 10,000 units/1 ML INJ IV PRN (04:03)
[2022-07-23 06:00] VITALS: BP 125/39
--- NOTE | 2022-07-23 06:56 | NUR ---
Patient in room U 3025H. I have received report from Chi FUENTES and had the opportunity to ask questions and assume patient care. Pt is sitting high fowlers in bed. Pt on 2L NC. No s/s of distress. Pt declines c/o pain at this time. BLL, call light within reach, frequently used items in reach, frequent rounding, timber management assistant socks on. Will continue to monitor.
[2022-07-23] MEDS: K and/or MAG REPLACEMENT MC SCH (08:00)
[2022-07-23] MEDS ORDERED: HYDROchlorothiazide 12.5mg capsule PO SCH ×2 (08:27→10:34)
[2022-07-23] MEDS ORDERED: allopurinol 100mg tablet PO SCH (08:30)
[2022-07-23] MEDS: methylPREDNISolone sod succ 125mg/2ml vial IV SCH (08:43)
[2022-07-23] MEDS: doxycycline inj 100 MG in normal saline 100ml IV soln 100 ML IV SCH (08:44)
[2022-07-23] MEDS: docusate sod 100mg capsule PO SCH (08:45)
[2022-07-23] MEDS: clonazePAM 0.5mg tablet PO SCH (08:45)
[2022-07-23] MEDS: lisinopril 20mg tablet PO SCH (08:45)
[2022-07-23 09:00] VITALS: BP 141/64
[2022-07-23 11:00] VITALS: BP 132/63
[2022-07-23] MEDS ORDERED: DOXY100C2 PO (13:00)
[2022-07-23] MEDS ORDERED: PRED20TA PO (13:00)
[2022-07-23] MEDS ORDERED: CARV3.12 PO (13:00)
[2022-07-23] MEDS ORDERED: ASPI-1265 PO (13:00)
[2022-07-23] MEDS ORDERED: ATOR20TA PO (13:00)
[2022-07-23] MEDS: normal saline 1000ml 1,000 ML IV SCH (14:05)
--- NOTE | 2022-07-23 14:48 | NUR ---
Pt DC'd to personal vehicle, Daughter driving. VSS, Pt afebrile, no issues with medications. Pt on home O2 @ 2L NC. PIV to LFA and L wrist removed, tip intact, no issues with removal or the site. All discharge questions answered, discharge education provided. All personal belongings went home with Pt.
== END 2022-07-23 14:48 | disposition home or self-care (01) | DRG 189 ==
LOC: ER 09:59 → ED HOLD 14:05 → PCU 3S 15:34
PROVIDERS: ADMIT Family Medicine; ATTEND Family Medicine
PROC: CB121ZZ Planar Nuclear Medicine Imaging of Lungs and Bronchi using Technetium 99m (Tc-99m) (ICD-10-PCS; principal; 2022-07-22)
DX: J96.21 Acute and chronic respiratory failure with hypoxia (principal); I21.A1 Myocardial infarction type 2; N17.9 Acute kidney failure, unspecified; J44.0 Chronic obstructive pulmonary disease with (acute) lower respiratory infection; J44.1 Chronic obstructive pulmonary disease with (acute) exacerbation; F32.A Depression, unspecified; F41.9 Anxiety disorder, unspecified; M10.9 Gout, unspecified; J20.9 Acute bronchitis, unspecified; I12.9 Hypertensive chronic kidney disease with stage 1 through stage 4 chronic kidney disease, or unspecified chronic kidney disease; N18.32 Chronic kidney disease, stage 3b; Z79.899 Other long term (current) drug therapy; Z88.0 Allergy status to penicillin; Z90.710 Acquired absence of both cervix and uterus; Z99.81 Dependence on supplemental oxygen; Z88.5 Allergy status to narcotic agent; Z88.8 Allergy status to other drugs, medicaments and biological substances; Z79.82 Long term (current) use of aspirin
CPT/HCPCS: 36415; 71045; 78582; 80048; 80053; 83605; 83735; 83880; 84484; 85025; 85730; 87040; 87081; 90686; 93005; 93306; 94640; 94760; 96365; 96367; 96375; 96376; 97116; 99291; A4615; A7015; A9539; A9540; G0378; J1644; J2930; J3475; J3490; J7030

== ENCOUNTER 2022-10-07 11:52 | Emergency (ER) | payer MEDICARE, MEDICAID ==
[~2022-10-07] VITALS: Ht 170.2 cm; Wt 72.3 kg
[~2022-10-07 11:52] MED LIST changes: +ACET-1995 PO; +ALBU17AE26 IH; -AMLO5TAB16 PO; +ATOR20TA PO; +BENZ-111 PO; -CALC500T63 PO; +CARV3.12 PO; -CHOL20002 PO; +ESTR42.510 VG; -HYDR-3972 PO; +HYDR12.55 PO; -LANS30CA56 PO; -LISI1TAB51 PO; +LISI20TA28 PO; -TES100C PO
[2022-10-07] MEDS ORDERED: LIDOCAINE 2%/EPI 1:100,000 inj. Multi-dose 20 ML VIAL IJ ONE (12:35)
[2022-10-07 13:40] VITALS: BP 198/116
[2022-10-07] MEDS ORDERED: traMADol 50MG tablet PO ONE (17:00)
[2022-10-07] MEDS ORDERED: TRAM50TA2 PO (17:01)
== END 2022-10-07 17:24 | disposition home or self-care (01) ==
LOC: ER 11:53
DX: S01.81XA Laceration without foreign body of other part of head, initial encounter (principal); S00.83XA Contusion of other part of head, initial encounter; I10 Essential (primary) hypertension; J44.9 Chronic obstructive pulmonary disease, unspecified; F32.A Depression, unspecified; Z86.2 Personal history of diseases of the blood and blood-forming organs and certain disorders involving the immune mechanism; Z90.49 Acquired absence of other specified parts of digestive tract; Z88.0 Allergy status to penicillin; Z79.899 Other long term (current) drug therapy; Z88.5 Allergy status to narcotic agent; W18.40XA Slipping, tripping and stumbling without falling, unspecified, initial encounter; Y93.89 Activity, other specified; Y92.89 Other specified places as the place of occurrence of the external cause; Y99.8 Other external cause status
CPT/HCPCS: 12013; 70450; 70486; 72125; 99284; A6449

== ENCOUNTER 2025-04-25 08:27 | Emergency (ER) | payer MEDICARE, MEDICAID ==
[~2025-04-25] VITALS: Ht 170.2 cm; Wt 67.4 kg
[2025-04-25 08:33] VITALS: TEMP 98.1
--- NOTE | 2025-04-25 09:14 | Physician Documentation ---
History of Present Illness ~ Chief Complaint: Flank Pain Stated Complaint: FLANK PAIN Time Seen by MD: 08:48 Primary Medical Doctor: LIZ PHAN Very pleasant 75-year-old female presents to the ED with a complaint of left flank pain which radiates to the left pelvic region. She states the pain feels as though it is in her stomach. Patient has a chronic history of incontinence UTIs and currently complains of burning urination. She denies any acute injury. Also denies any fevers. Denies any history of kidney stones. She also is on 2 L of oxygen secondary to COPD. Day of Onset: Apr 25, 2025 Medication Reconciliation Allergies: Coded Allergies: Penicillins (Verified Allergy, Intermediate, MOUTH SWELLS, 07/21/22) Tolerated Cefepime during hospital stay 12/30 gluten (Verified Allergy, Unknown, 03/17/22) codeine (Verified Adverse Reaction, Mild, NAUSEA/VOMITING, 03/17/22) Scheduled Allopurinol (Allopurinol), 2 TAB PO DAILY, (Reported) Arformoterol Tartrate (Brovana), 1 VIAL NEB BID, (Reported) Atorvastatin Calcium (Lipitor), 1 TAB PO DAILY Budesonide Neb* (Pulmicort Neb*), 1 VIAL NEB Q12H, (Reported) Carvedilol (Coreg), 1 TAB PO Q12H Cholecalciferol (Vitamin D3) (Vitamin D3), 1 TAB PO DAILY, (Reported) Clonazepam (Clonazepam), 1 TAB PO DAILY, (Reported) Estradiol (Estradiol), 1 GM VG TuFr, (Reported) Furosemide (Furosemide), 1 TAB PO DAILY, (Reported) Gabapentin (Gabapentin), 1 CAP PO DAILY, (Reported) Hydrochlorothiazide (Hydrochlorothiazide), 1 TAB PO DAILY, (Reported) Lisinopril (Lisinopril), 1 TAB PO DAILY, (Reported) Sertraline HCl (Sertraline HCl), 150 MG PO HS, (Reported) Scheduled PRN Acetaminophen (Acetaminophen Extra Strength), 500 MG PO Q8H PRN for ARTHRITIS, (Reported) Albuterol (Albuterol), 2 PUFFS IH Q6H PRN for SOB or wheezing, (Reported) Discontinued Medications Benzonatate (Benzonatate), 1 CAP PO TID PRN for cough, (Reported) Discontinued Reason: patient no longer taking Past Medical History Past Medical History: Hypertension, COPD, *GI/HEPATOBILIARY*, Anemia, Extremity Fracture, Gout, Depression Past Surgical History: hysterectomy, orthopedic surgeries, other Alcohol Use: None Drug Use: none Lives with: Family Lives In: Home Occupation: retired Review of Systems All Other Systems at this time: Reviewed and Negative ROS As stated above in the HPI, otherwise all systems are reviewed and negative. Physical Exam Vital Signs: Temperature: 98.1, Source: Oral, Heart Rate: 79, Respiratory Rate: 16, BP: 157/80, Pulse Oximetry: 98, Weight: 67.400 Physical Exam General: Alert, no apparent distress. Cardiovascular: Regular rate and rhythm, no murmurs. Gastrointestinal: Soft, nontender, nondistended. Bowels sounds present. Positive CVA tenderness left flank Neurologic: Oriented x4. Psychiatric: Normal mood and affect. Skin: Normal color, warm and dry. No edema, no ecchymosis. Progress Results/Orders Results/Orders Orders - MANNY NOGUEIRA JUVENILE PROBATION OFFICER Cult Urine + [address] (04/25/25 09:54) Completed Orders - MANNY NOGUEIRA JUVENILE PROBATION OFFICER Cbc/Diff (04/25/25 08:49) BMP (04/25/25 08:49) Lipase (04/25/25 08:49) CMP (04/25/25 08:49) Ua W/Microscopic, Cult If Ind (04/25/25 09:17) Vital Signs 04/25/25 04/25/25 04/25/25 08:33 10:05 10:19 Temp 98.1 Pulse 79 Resp 16 16 B/P (MAP) 157/80 Pulse Ox 98 98 O2 Delivery Nasal Cannula* O2 Flow Rate 2 FiO2 28 Laboratory Tests Test 04/25/25 09:17 04/25/25 09:33 Urine Specimen Description Cln catch midstream Urine Color Yellow Urine Clarity Cloudy Urine pH 6.5 Urine Specific [place] 1.020 Urine Protein >=300 H Urine Glucose (UA) Negative Urine Ketones Negative Urine Occult Blood Trace-intact Urine Nitrite Positive H Urine Bilirubin Negative Urine Urobilinogen 0.2 Urine Leukocyte Esterase Small H Urine RBC None seen Urine WBC 50-100 H Urine Squamous Epithelial Cells Few Urine Bacteria 4+ Urine Mucus Urine Culture Indicated Indicated Volume Urine Centrifuged 10 ml Urine Comment White Blood Count 8.2 Red Blood Count 3.61 L Hemoglobin 10.2 L Hematocrit 31.0 L Mean Corpuscular Volume 85.9 Mean Corpuscular Hemoglobin 28.3 Mean Corpuscular Hemoglobin Concent 33.0 Red Cell Distribution Width 15.6 H Platelet Count 248 Mean Platelet Volume 8.2 Neutrophils (%) (Auto) 81.5 H Lymphocytes (%) (Auto) 10.2 L Monocytes (%) (Auto) 4.9 Eosinophils (%) (Auto) 2.7 Basophils (%) (Auto) 0.7 Neutrophils # (Auto) 6.7 Lymphocytes # (Auto) 0.8 L Monocytes # (Auto) 0.4 Eosinophils # (Auto) 0.2 Basophils # (Auto) 0.1 CBC Comment Sodium Level 145 Potassium Level 4.4 Chloride Level 107 Carbon Dioxide Level 29.2 Anion Gap 9 Blood Urea Nitrogen 35 H Creatinine 2.12 H Estimated GFR/1.73 m2 23 BUN/Creatinine Ratio 16.5 Glucose Level 98 Calcium Level 9.8 Total Bilirubin 0.5 Aspartate Amino Transf (AST/SGOT) 15 Alanine Aminotransferase (ALT/SGPT) 17 Alkaline Phosphatase 129 H Total Protein 7.0 Albumin 3.4 Globulin 3.6 Albumin/Globulin Ratio 0.9 L Lipase 25 Chemistry Comments Medical Decision Making Findings This 75-year-old female came back positive in her urinalysis for a urinary tract infection which was expected. He is not show any signs of hematuria. I discussed these findings with the patient and I offered hospitalization however she states she would rather be treated in the outpatient setting. He has a very good historian and shows no signs of metabolic encephalopathy. At this time, I am going to start her on ciprofloxacin Departure Disposition: 01 HOME / SELF CARE / HOMELESS Impression: Primary Impression: Acute urinary tract infection Additional Impression: Acute pyelonephritis Discharge Instructions: Pyelonephritis, Adult Referrals: NO PRIMARY CARE PROVIDER (PCP) Prescriptions Ciprofloxacin HCl (Ciprofloxacin HCl) 500 Mg Tab 1 TAB PO Q12H for 10 Days, #20 TAB Prov: MANNY NOGUEIRA JUVENILE PROBATION OFFICER 04/25/25 Education Educated: Patient Educated regarding: diagnosis Signature Scribe Signature: f Attestation: Scribed for Manny Nogueira Storekeeper [employer] by Manny Bullard NP . 04/25/25 10:25 MANNY NOGUEIRA NP Apr 25, 2025 09:14
[2025-04-25 09:36] LABS: LEUKOCYTE ESTERASE ,URINE SMALL (Neg); NITRITES, URINE POSITIVE (Neg); OCCULT BLOOD,URINE TRACE-INTACT (Neg)
[2025-04-25 09:43] LABS: MEAN PLATELET VOLUME 8.2 FL (7.4-10.4); RED CELL DISTRIBUTION WIDTH 15.6 % (11.5-14.5)
[2025-04-25 09:51] LABS: UA COLLECTION TYPE CLN CATCH MIDSTREAM
[2025-04-25 09:53] LABS: SQUAMOUS EPITHELIAL CELL,UR FEW /LPF (FEW)
[2025-04-25 10:08] LABS: CREATININE 2.12 MG/DL (0.40-0.90); TOTAL CARBON DIOXIDE 29.2 MMOL/L (24-32); eCRCL 22 ML/MIN; eGFR 23 ML/MIN
[2025-04-25] MEDS ORDERED: GABA-530 PO (10:22)
[2025-04-25] MEDS ORDERED: FURO20TA4 PO (10:22)
[2025-04-25] MEDS ORDERED: CHOL20003 PO (10:22)
[2025-04-25] MEDS ORDERED: CIPR-458 PO (10:25)
[2025-04-25] MEDS: ciprofloxacin 250mg tablet PO ONE (10:34)
[2025-04-25 10:42] VITALS: BP 153/75; PULSE 76; RESP 18; O2SAT 97
== END 2025-04-25 10:45 | disposition home or self-care (01) ==
LOC: ER 08:27
DX: N39.0 Urinary tract infection, site not specified (principal); N10 Acute pyelonephritis; I10 Essential (primary) hypertension; J44.9 Chronic obstructive pulmonary disease, unspecified; F32.A Depression, unspecified; Z88.0 Allergy status to penicillin; Z88.1 Allergy status to other antibiotic agents; Z88.5 Allergy status to narcotic agent; Z88.8 Allergy status to other drugs, medicaments and biological substances; Z90.710 Acquired absence of both cervix and uterus
CPT/HCPCS: 36415; 80053; 81001; 83690; 85025; 87077; 87088; 87186; 99284